=== PATIENT | male | born 1970 | race Caucasian/White ===

== ENCOUNTER 2023-02-19 14:36 | Outpatient (OUT) | payer OTHER, SELFPAY ==
--- NOTE | 2023-02-19 15:31 | CA_ITS ---
Patient: NAUN OJEDA Exam Date: 02/19/2023 : 1970 Gender:M Ordering : DR Frederick Ng . Admission #: [id number] Family : Order #: [id number] CLICK HERE TO VIEW EXAM ECHOCARDIOGRAM REPORT PROCEDURE: CA ECHO DOPPLER COMPLETE INDICATIONS: Atrial fibrillation; history of septal defect repair. COMPARISON: None. DESCRIPTION: COMPLETE ECHOCARDIOGRAM Real-time transthoracic echocardiography with 2D, M-mode, spectral and color flow Doppler performed. QUALITY: Technical quality was limited. LEFT VENTRICLE: Normal chamber size. Thickened posterior wall. Systolic function is at the lower limits of normal. LV EF: Lower limits of normal left ventricular ejection fraction, (50%). DIASTOLIC: Not adequately assessed due to heart rhythm. ATRIAL SEPTUM: Atrial and ventricular septum appear intact. LEFT ATRIUM: Mild dilatation. RIGHT ATRIUM: Moderate dilatation. RIGHT VENTRICLE: Mild dilatation. Moderately decreased right ventricular systolic function. TRICUSPID VALVE: Normal mobility and thickness. No stenosis with moderate regurgitation. Mild pulmonary hypertension. RVSP 38 mmHg. MITRAL VALVE: Normal mobility and thickness. No evidence of mitral valve stenosis. There is no mitral annular calcification. Mild mitral regurgitation. AORTIC VALVE: Bicuspid aortic valve, Terell type I with the right-left fusion. No visible sclerosis. No evidence of aortic valve stenosis. No aortic regurgitation. AORTIC ROOT: Mildly dilated. Measuring 4.0 cm. The ascending aorta is dilated measuring 4.0 cm. PULMONIC VALVE: Normal thickness and mobility. No stenosis. Mild regurgitation. PERICARDIUM: No evidence of pericardial effusion. IVC: Not well visualized. PLEURA: CONCLUSION: 1. Left ventricular systolic function is at the lower limits of normal. LVEF is 50%. 2. Mildly dilated right ventricle with moderately reduced systolic function. 3. Mild to moderate biatrial dilatation. 4. Interatrial and interventricular septum appear intact by color Doppler flow. 5. Moderate tricuspid regurgitation. 6. Mild mitral regurgitation. 7. Bicuspid aortic valve with no stenosis or regurgitation. 8. Mildly elevated right-sided pressures. 9. Mildly dilated aortic root [4.0 cm], and ascending aorta [4.0 cm]. Adult Echocardiography Procedure Report Left Ventricle LVEDD (3.7 - 5.6 cm): 5.07 cm LVESD (2.2 - 4.0 cm): 3.62 cm LVIVS thickness (0.6 - 1.2 cm): 1.04 cm LVPW thickness (0.5 - 1.0 cm): 1.27 cm e': 0.15 m/s E - e': 2.99 LVOT Max Gradient: 2.55 mm[Hg] LVOT Area (cm2): 0.80 m/s Peak Velocity (LVOT): 0.80 m/s Mean Velocity (LVOT): 0.52 m/s LVOT Diameter 2.27 cm Left Atrium Left Atrium Systolic Dimension: 3.57 cm Mitral Valve MV E to A Ratio: 0.00 Mitral Valve A-Wave Peak Velocity: 0.92 m/s Mitral Valve E-Wave Peak Velocity: 0.46 m/s Right Ventricle RV Internal Diastolic Dimension: 4.29 cm Aorta AO Root Diam: 4.00 cm Ascending Ao Diam: 4.02 cm Aortic Valve AoV Area (Peak Alberto): 2.17 cm2, 2.17 cm2 AoV Area (VTI): 2.40 cm2, 2.40 cm2 Peak Velocity(Antegrade Flow): 1.49 m/s Peak Gradient(Antegrade Flow): 8.91 mm[Hg] Mean Velocity(Antegrade Flow): 1.07 m/s Mean Gradient(Antegrade Flow): 5.32 mm[Hg] Velocity Time Integral: 30.44 cm Tricuspid Valve Peak Velocity (Regurgitant Flow): 2.49 m/s, 2.95 m/s, 2.95 m/s, 2.63 m/s Pulmonic Valve Mean Gradient: 3.93 mm[Hg] Mean Velocity: 0.92 m/s Peak Velocity: 1.41 m/s, 1.05 m/s Peak Gradient: 4.38 mm[Hg], 7.96 mm[Hg] Right Atrium Right Atrium Systolic Pressure: 128.34 ml, 128.34 ml Dictated by: Rosalino Chaudhry M.D. on 02/19/2023 at 20:12 Approved by: Rosalino Chaudhry M.D. on 02/19/2023 at 20:19
== END 2023-02-19 14:37 | disposition home or self-care (01) ==
LOC: CARD 14:39
PROVIDERS: PCP Family Medicine; Visit Provider Family Medicine
DX: I48.91 Unspecified atrial fibrillation (principal); I08.1 Rheumatic disorders of both mitral and tricuspid valves
CPT/HCPCS: 93306

== ENCOUNTER 2023-08-18 09:04 | Outpatient (OUT) | payer OTHER, SELFPAY ==
--- NOTE | 2023-08-18 09:00 | NM_ITS ---
Patient Name: NAUN OJEDA MR#: [id number] : 1970 Exam Date: 08/18/2023 Ordering Doctor: DR Frederick Ng . RADIOLOGY REPORT PROCEDURE: NM PRANAV PERF SPECT REST STR COMPARISON: None. INDICATIONS: ATRIAL FIBRILLATION, CHEST PAIN, HYPERTENSION TECHNIQUE: Exam Description: Stress/Rest two day protocol gated SPECT Rest Imagin.5 mCi Tc-99m Cardiolite IV on 08-21-2023 Stress Imaging 25.6 mCi Tc-99m Cardiolite IV on 08-18-2023 Exercise Protocol: 0.4 mg Lexiscan given IV Heart Rate (bpm): Rest: 97 Max: 115 PMHR: 67 Blood Pressure: Rest: 178/120 Max: 178/120 Symptoms: Rest and peak stress ECG findings were abnormal and the exercise portion of the study was abnormal per attending physician Dr. Ledesma due to EKG changes. ST-segment downsloping in V4-V6. For more details please see separate cardiac stress test report. FINDINGS: QUALITY OF STUDY: Good. PERFUSION DEFECT: LOCATION: Mid-anterior. Apical inferior. SIZE: Small (1-2 segments). SEVERITY: Mild. TYPE: Persistent. WALL MOTION: Severe hypokinesis: Apical inferior. LV SIZE: Enlarged; EDV 161 mL. TID / TCD: None; 1.1 LVEF: Abnormal. Calculated EF 34%. SUMMARY: Myocardial perfusion imaging study has ABNORMAL findings. CONCLUSION: 1. No acute or reversible ischemia. 2. Marked ventriculomegaly, 161 mL. 3. Markedly low ejection fraction, 34%. 4. Generalized hypokinesis, with marked hypokinesis involving the inferior apically segment. 5. Small fixed perfusion defect involving the apically inferior segment and mid anterior segment. Overall slightly poor perfusion throughout. Dictated by: Deep Mallory M.D. on 08/21/2023 at 11:56 Approved by: Deep Mallory M.D. on 08/21/2023 at 12:03
[2023-08-18] MEDS: REGADENOSON 0.4 MG/5 ML SYRINGE IV (10:10)
--- NOTE | 2023-08-18 12:51 | PM.STRESS ---
Stress Test Stress Test Requesting physician: Frederick Ng Procedure: Lexiscan Cardiolite stress test General Information: Reason for Stress Test: Chest pain Cardiac History and Risk Factors: HTN, afib, s/p septal defect closure & pericardial window Resting 12 - Lead Electrocardiogram: Rate & rhythm: Irregularly irregular corresponding to atrial fibrillation. Resting heart rate was averaging 98. Hundred: Normal T-waves/ST-segments: Non-specific T-wave and ST-segment changes in leads I & aVL, and II & III. Stress Test: Protocol: Duncan protocol was initiated, but due to inability to ambulate, the exercise component was therefore canceled.? Testing was changed to Lexiscan protocol, with injection of 0.4mg Lexiscan IV push followed by Cardiolite. Blood pressure: Initial & maximum 178/120 Rate & rhythm: Patient remained in atrial fibrillation during the exercise and recovery portions of the study.? The maximum heart rate was 115, which was 67% of the maximum predicted heart rate 170. ST-segments & T-waves: After injection of Lexiscan, there was downsloping of the ST-segments in leads V4-6, which resolved to baseline orientation at the end of the study. Patient response/symptoms: There were no symptoms similar to the chief complaint. Interpretation: This is an abnormal Lexiscan stress test with ST-segment downsloping in the lateral leads (V4-6). Asymptomatic. Cardiolite imaging interpretation will be reported separately. Clinical correlation required.?
== END 2023-08-18 09:05 | disposition home or self-care (01) ==
PROVIDERS: PCP Family Medicine; Visit Provider Family Medicine
DX: R07.9 Chest pain, unspecified (principal); I10 Essential (primary) hypertension
CPT/HCPCS: 78452; 93017; A9500; J2785

== ENCOUNTER 2023-09-23 15:14 | Outpatient (OUT) | payer OTHER, SELFPAY ==
[2023-09-23 16:20] LABS: Basophils Absolute Auto 0.1 10^3/uL (0.0-0.1); Basophils Percent Auto 0.6 % (0.2-2.0); Eosinophils Absolute Auto 0.2 10^3/uL (0.0-0.7); Eosinophils Percent Auto 1.6 % (0.9-7.0); Hematocrit 43.6 % (42.0-54.0); Hemoglobin 14.6 g/dL (14.0-18.0); Immature Granulocytes Abs Auto 0.04 10^3/uL (0.00-0.03); Immature Granulocytes Pct Auto 0.4 % (0.0-0.5); Lymphocytes Absolute Auto 2.8 10^3/uL (1.2-3.8); Lymphocytes Percent Auto 29.8 % (20.5-60.0); Mean Corpuscular HGB Conc 33.5 g/dL (29.9-35.2); Mean Corpuscular Hemoglobin 29.6 pg (25.9-34.0); Mean Corpuscular Volume 88.3 fL (80.0-94.0); Mean Platelet Volume 10.8 fL (9.5-13.5); Monocytes Absolute Auto 0.9 10^3/uL (0.3-0.8); Monocytes Percent Auto 9.1 % (1.7-12.0); Neutrophils Absolute Auto 5.5 10^3/uL (1.4-6.5); Neutrophils Percent Auto 58.5 % (43.0-75.0); Platelet Count 288 10^3/uL (150-450); Red Blood Count 4.94 10^6/uL (4.70-6.10); Red Cell Distribution Width 12.2 % (11.0-15.0); White Blood Count 9.4 10^3/uL (4.0-11.0)
[2023-09-23 16:22] LABS: BUN Creatinine Ratio 20.5; Calcium 8.8 mg/dL (8.5-10.1); Carbon Dioxide 28.7 mmol/L (21.0-32.0); Chloride 101 mmol/L (98-107); Estimated GFR (African America >60 (>=60); Estimated GFR (Non-African Ame >60 (>=60); Glucose 184 mg/dL (74-106); Potassium 3.7 mmol/L (3.5-5.1); Sodium 137 mmol/L (136-145)
== END 2023-09-23 15:15 | disposition home or self-care (01) ==
LOC: LAB 15:16
PROVIDERS: PCP Family Medicine; Visit Provider Internal Medicine Cardiovascular Disease
DX: I48.91 Unspecified atrial fibrillation (principal)
CPT/HCPCS: 36415; 80048; 85025

== ENCOUNTER 2023-10-05 15:24 | Outpatient (OUT) | payer OTHER, SELFPAY | END 2023-10-05 15:25 | disposition home or self-care (01) | LOC: SLEEP 15:24 | PROVIDERS: PCP Family Medicine; Visit Provider Family Medicine | DX: G47.33 Obstructive sleep apnea (adult) (pediatric) (principal) | CPT/HCPCS: 95806 ==

== ENCOUNTER 2023-12-03 15:26 | Outpatient (OUT) | payer OTHER, SELFPAY ==
[2023-12-03 15:56] LABS: Anion Gap 10.4; BUN Creatinine Ratio 19.1; Calcium 8.5 mg/dL (8.5-10.1); Carbon Dioxide 28.8 mmol/L (21.0-32.0); Chloride 100 mmol/L (98-107); Estimated GFR (African America >60 (>=60); Estimated GFR (Non-African Ame >60 (>=60); Glucose 248 mg/dL (74-106); Potassium 4.2 mmol/L (3.5-5.1); Sodium 135 mmol/L (136-145)
[2023-12-03 16:39] LABS: Basophils Absolute Auto 0.1 10^3/uL (0.0-0.1); Basophils Percent Auto 0.8 % (0.2-2.0); Eosinophils Absolute Auto 0.2 10^3/uL (0.0-0.7); Eosinophils Percent Auto 2.4 % (0.9-7.0); Hematocrit 42.9 % (42.0-54.0); Hemoglobin 14.4 g/dL (14.0-18.0); Immature Granulocytes Abs Auto 0.03 10^3/uL (0.00-0.03); Immature Granulocytes Pct Auto 0.4 % (0.0-0.5); Lymphocytes Absolute Auto 1.8 10^3/uL (1.2-3.8); Lymphocytes Percent Auto 23.2 % (20.5-60.0); Mean Corpuscular HGB Conc 33.6 g/dL (29.9-35.2); Mean Corpuscular Hemoglobin 29.8 pg (25.9-34.0); Mean Corpuscular Volume 88.8 fL (80.0-94.0); Mean Platelet Volume 11.3 fL (9.5-13.5); Monocytes Absolute Auto 0.8 10^3/uL (0.3-0.8); Monocytes Percent Auto 10.3 % (1.7-12.0); Neutrophils Percent Auto 62.9 % (43.0-75.0); Platelet Count 259 10^3/uL (150-450); Red Blood Count 4.83 10^6/uL (4.70-6.10); Red Cell Distribution Width 12.2 % (11.0-15.0); White Blood Count 7.9 10^3/uL (4.0-11.0)
== END 2023-12-03 15:27 | disposition home or self-care (01) ==
LOC: LAB 15:27
PROVIDERS: PCP Family Medicine; Visit Provider Internal Medicine Cardiovascular Disease
DX: I48.0 Paroxysmal atrial fibrillation (principal)
CPT/HCPCS: 36415; 80048; 85025

== ENCOUNTER 2024-03-30 06:26 | Outpatient (OUT) | payer OTHER, SELFPAY ==
--- OUTSIDE RECORDS SUMMARY | 2024-03-30 06:30 | XMS_ITS | CCD ---
Author Organization [facility] Care Team Providers Care Funeral Pre Arrangement Specialist Name Role Phone GUERRERO, DR JAMISON Admitting Unavailable GUERRERO, DR JAMISON Consulting Unavailable GUERRERO, DR JAMISON Attending Unavailable GUERRERO, DR JAMISON Admitting Unavailable GUERRERO, DR JAMISON Primary Care Unavailable GUERRERO, DR JAMISON Consulting Unavailable GUERRERO, DR JAMISON Attending Unavailable Beba Caballero Unavailable CORI, SAMER J Referring Unavailable CORI, SAMER J Admitting Unavailable CORI, SAMER J Attending Unavailable AUDREY, LOGAN Referring Unavailable DENA, CATRACHO Admitting Unavailable DENA, CATRACHO Attending Unavailable DENA, CATRACHO Referring Unavailable DENA, CATRACHO Referring Unavailable DENA, CATRACHO Referring Unavailable DENA, CATRACHO Attending Unavailable AUDREY, LOGAN Attending Unavailable AUDREY, LOGAN Referring Unavailable AUDREY, LOGAN Attending Unavailable Allergies Allergy Classification Reported Allergen(s) Allergy Type Date of Onset Reaction(s) Facility (3 sources) shrimp allergenic extract Drug Allergy anaphylaxis [facility] [employer] Other (1 source) Shrimp product; Translations: [SHRIMP] Propensity to adverse reactions to drug (disorder) 4 [facility] Repository Medications Current Medications Medication Drug Class(es) Dates Sig (Normalized) Sig (Original) citalopram 40 mg oral tablet (3 sources) Serotonin Reuptake Inhibitor take 1 tablet by mouth once daily Citalopram Hydrobromide 40 MG TAKE 1 TABLET BY MOUTH ONCE DAILY Oral for 30 Days Active metroNIDAZOLE 500 mg oral tablet (3 sources) Nitroimidazole Antimicrobial Start: 12-03-2021 take 4 tablets by mouth once metroNIDAZOLE 500 MG 4 tablets Orally once for 1 days November, Active Problems Active Problems Problem Classification Problem Date Documented Date Episodic/Chronic Cardiac dysrhythmias (4 sources) Paroxysmal atrial fibrillation; Translations: [Unspecified atrial fibrillation] Onset: 09-30-2023 Chronic Essential hypertension (2 sources) Essential (primary) hypertension; Translations: [Essential (primary) hypertension] Onset: 09-07-2023 Chronic Heart valve disorders (2 sources) Nonrheumatic aortic (valve) stenosis; Translations: [Nonrheumatic aortic (valve) stenosis] Onset: 09-04-2023 Chronic Other aftercare (2 sources) Other technician terminal and repeater (current) drug therapy; Translations: [Other technician terminal and repeater (current) drug therapy] Onset: 01-06-2024 Episodic Other circulatory disease (2 sources) Personal history of other diseases of the circulatory system; Translations: [Personal history of other diseases of the circulatory system] Onset: 01-06-2024 Episodic Other upper respiratory infections (1 source) Acute sinusitis, unspecified; Translations: [ACUTE SINUSITIS UNSPECIFIED] Onset: 06-21-2021 Episodic Residual codes; unclassified (2 sources) Other specified postprocedural states; Translations: [Other specified postprocedural states] Onset: 01-06-2024 Episodic Unclassified (3 sources) CONTACT W/AND (SUSP) EXPOS COVID-19; Translations: [CONTACT W/AND (SUSP) EXPOS COVID-19] Onset: 06-21-2021 Unclassified (2 sources) Other persistent atrial fibrillation; Translations: [Other persistent atrial fibrillation] Onset: 11-17-2023 Past or Other Problems Problem Classification Problem Date Documented Da te Episodic/Chronic Other circulatory disease (2 sources) Elevated blood-pressure reading, without diagnosis of hypertension Onset: 12-03-2021 Resolved: 12-03-2021 Episodic Other screening for suspected conditions (not mental disorders or infectious disease) (1 source) Encounter for screening for malignant neoplasm of prostate; Translations: [ENC SCREEN MALIG NEOPLASM PROSTATE] Onset: 10-15-2020 Episodic Residual codes; unclassified (2 sources) High risk heterosexual behavior Onset: 12-03-2021 Resolved: 12-03-2021 Episodic Unclassified (1 source) CONTACT W/AND (SUSP) EXPOS COVID-19; Translations: [CONTACT W/AND (SUSP) EXPOS COVID-19] Onset: 06-17-2021 Results Test Name Value Interpretation Reference Range Facility 37on 01-06-2024 37 Start Hydrochlorothiazide for blood pressure and may help reduce leg swelling Goal blood pressure is less than 130/80 Have blood drawn in 1-2 weeks to check kidney function, electrolytes, liver function and thyroid function Chest x ray to be completed and you need a annual eye exam every year with taking amiodarone. Normal [facility] Follow-Upon 01-06-2024 Follow-Up [id number] Ha Tinoco 1970 M Date Provider Department Center 01/06/2024 LOGAN TORO GINO [facility] Family History Problem Relation Age of Onset Other Mother Family Status - Relation Status Age at Mother Level of Service:55786 [place] OFFICE/OUTPATIENT ESTABLISHED MOD MDM 30 MIN Normal [facility] Telephoneon 12-17-2023 Telephone [id number] Ha Tinoco 1970 M Date Provider Department Center 12/17/2023 CATRACHO MATHIAS [facility] [place] [facility] Family History Problem Relation Age of Onset Other Mother Family Status - Relation Status Age at Mother Reason for Visit and Comments: week f/u post ablation [Other] Normal [facility] HEMOGLOBIN A1Con 12-10-2023 Glucose [Mass/Vol] 237 mg/dL Normal [facility] Comment on above: Order Comment: NO VA RIANT Performed By: #### L [id number] #### [facility] ([facility]) [address] [place] [address] HbA1c (Bld) [Mass fraction] 9.9 % High 4.0-6.0 [facility] Comment on above: Order Comment: NO VA RIANT Performed By: #### L [id number] #### [facility] ([facility] [address] [place] [address] HPon 12-10-2023 [facility] Electrophysiology Consult Note Reason for visit: Afib 12/10/23 Pt here for Afib ablation. Pt in Afib HPI: Ha Tinoco is a 53 y.o. year old with past medical history of A-fib hypertension morbid obesity diabetes mellitus type 2 history of atrial septal defect repair was recently seen by Logan Ventura after he was referred for atrial fibrillation by Dr. Ng. Patient was diagnosed with atrial fibrillation in December 2022 and had been placed on Eliquis and metoprolol. He had a stress test which was negative for ischemia and had an echocardiogram in February 2023. Previously had not been tested for sleep apnea and recently underwent cardioversion on 09/30/2023 when he converted to sinus rhythm. Subsequently he was noted to be in atrial fibrillation and today's EKG shows that he is in A-fib with rapid ventricular rate. He has not been trialed on any antiarrhythmic drugs. Palpitations are much less frequent. SOB is improving. Denies chest pain and bleeding on Eliquis. Feels a lot better now but says his BP has been elevated. EKG 11/17/23 Afib PMH: Past Medical History: Diagnosis Date Abnormal ECG Anxiety Arrhythmia Atrial fibrillation ([facility]/HCC) 12/2022 Depression Diabetes mellitus ([facility]) Heart valve disease bicuspid aortic valve History of cardioversion 12/2022 Hypertension Obesity BMI 44.75 Sleep apnea PSH: Past Surgical History: Procedure Laterality Date ASD REPAIR CARPAL TUNNEL RELEASE SH: Social Determinants of Health Tobacco Use: High Risk (12/10/2023) Patient History Smoking Tobacco Use: Former Smokeless Tobacco Use: Current Passive Exposure: Not on file Alcohol Use: Not on file Financial Resource Strain: Not on file Food Insecurity: Not on file Transportation Needs: Not on file Physical Activity: Not on file Stress: Not on file Social Connections: Not on file Intimate Partner Violence: Unknown (08/27/2023) [place] Safety & Environment Fear of Current or Ex-Partner: Not on file Emotionally Abused: Not on file Physically Abused: Not on file Sexually Abused: Not on file Physically or Sexually Abused: Not on file Depression: Not on file Housing Stability: Not on file Utilities: Not on file Allergies: Allergies Allergen Reactions Shrimp Anaphylaxis Throat swelling, itchy face Weight: 162kg Visit Vitals BP 140/79 Pulse 74 Temp 36 ???C (96.8 ???F) (Temporal) Resp 13 Ht 1.905 m (6' 3 ) Wt (!) 162 kg (356 lb 7.7 oz) SpO2 96% BMI 44.56 kg/m??? Smoking Status Former BSA 2.93 m??? Meds: No current facility-administered medications on file prior to encounter. Current Outpatient Medications on File Prior to Encounter Medication Sig Dispense Refill citalopram (CeleXA) 40 mg tablet Take 40 mg by mouth in the morning. Eliquis 5 mg tablet Take 5 mg by mouth in the morning and at bedtime. metoprolol tartrate (Lopressor) 50 mg tablet Take 50 mg by mouth with breakfast and with evening meal. ROS: Review of Systems Cardiovascular: Positive for dyspnea on exertion (improving) and palpitations (much less frequent). Respiratory: Positive for wheezing. Musculoskeletal: Positive for back pain and myalgias. Neurological: Positive for headaches. All other systems reviewed and are negative. Physical Exam: Constitutional General Appearance: well-nourished, well-developed, appears stated age Level of Distress: comfortable Psychiatric Mental Status: alert, normal affect Orientation: oriented to time, place, and person Insight: good judgement Eyes Lids and Conjunctivae: non-injected, no xanthelasma ENMT Ears: no lesions on external ear Nose: no lesions on external nose Oropharynx: no cyanosis, no pallor Neck Neck: supple, trachea midline Carotid Arteries: bilateral normal upstroke, no bruits Jugular Veins: normal jugular venous pressure Thyroid: not enlarged Lungs Respiratory Effort: unlabored Chest Exam: normal curvature, no thoracic deformity Auscultation: clear, no wheezing, no rales, no rhonchi Cardiovascular Rate And Rhythm: regular Heart Sounds: normal S1, normal s2, no gallop Systolic Murmur: not heard Diastolic Murmur: not heard Extremities: no cyanosis, no edema, no peripheral signs of emboli Peripheral Pulses Radial Pulse: normal Abdomen Inspection and Palpation: soft, non distended, no bruit, non tender Musculoskeletal Inspection: no joint swelling Neurologic Gait: normal gait Skin Inspection and Palpation: warm and dry Nails: no clubbing Labs: @LABRESULTS@ No results found for: CHOLESTEROL TOTAL , HDL , LDL CALC , LDL DIRECT , TRIGLYCERIDES , TSH , T3 TOTAL , T4 TOTAL , THYROID PEROXIDASE AB , BNP EKG: Encounter Date: 12/10/23 ECG 12 lead Result Value Ventricular Rate 74 Atrial Rate 74 NV Interval 192 QRS DURATION 104 QT Interval 436 QTC CALCULATION(BAZETT) 483 P Gowrie 56 R-Gowrie 43 T Wave Gowrie 87 Impression Normal sinus rhythm (more content not included)... Normal [facility] HP This report has been cancelled. Normal [facility] POCT GLUCOSE METER UNSOLICIT ED RESULTSon 12-10-2023 Glucose [Mass/Vol] 299 mg/dL High 70-105 [facility] Comment on above: Order Comment: Waive d Testing in the ED is performed under the ED CLIA certificate #[id number]. Result Comment: [email or web address] Performed By: #### L [id number] ####[facility] ([facility])[address] [place] [address] Glucose [Mass/Vol] 292 mg/dL High 70-105 [facility] Comment on above: Order Comment: Waive d Testing in the ED is performed under the ED CLIA certificate #[id number]. Result Comment: [email or web address] Performed By: #### L [id number] #### [facility] ([facility] [address] [place] [address] Glucose [Mass/Vol] 312 mg/dL High 70-105 [facility] Comment on above: Order Comment: Waive d Testing in the ED is performed under the ED CLIA certificate #[id number]. Result Comment: [email or web address] Performed By: #### L [id number] ####[facility] ([facility])[address] [place] [address] PROTIME-INRon 12-10-2023 INR IN PPP BY COAGULATION ASSAY 1.06 Normal 0.90-1.10 [facility] Comment on above: Result Comment: ACCC P RECOMMENDED INR FOR WARFARIN THERAPY CONDITION INR PROPHYLAXIS OF VENOUS THROMBOSIS 2-3 (HIGH-RISK SURGERY) TREATMENT OF VENOUS THROMBOSIS 2-3 TREATMENT OF PULMONARY EMBOLISM 2-3 PREVENTION OF SYSTEMIC EMBOLISM: 2-3 ACUTE MYOCARDIAL INFARCTION TISSUE HEART VALVES VALVULAR HEART DISEASE ATRIAL FIBRILLATION RECURRENT SYSTEMIC EMBOLISM MECHANICAL HEART VALVE 2.5-3.5 FROM: ORAL ANTICOAGULANTS. MECHANISM OF ACTION, CLINICAL EFFECTIVENESS, AND OPTIMAL THERAPEUTIC RANGE. CHEST 1995;108:231S-246S. Performed By: #### L [id number] ####[facility] ([facility])[address] [place] [address] PROTHROMBIN TIME (PT) IN PPP BY COAGULATION ASSAY 13.8 Seconds Normal 12.3-14.8 [facility] Comment on above: Performed By: #### L [id number] ####[facility] ([facility])[address] [place] [address] Prep for Procedureon 024 Prep for Procedure [id number] Ha Tinoco 1970 M Date Provider Department Center 12/10/2023 CATRACHO MATHIAS [facility] [place] [facility] Family History Problem Relation Age of Onset Other Mother Family Status - Relation Status Age at Mother Normal [facility] [id number] 12-02-2023 [id number] ARRIVAL TIME GIVEN 0 600 HOLD ELIQUIS 12/07 MEDICATIONS TO TAKE DAY OF SURGERY WITH SIP OF WATER AMIODARONE AMLODIPINE CELEXA METOPROLOL ORDERS FOR LABS FAXED TO [facility] PT AGREES TO HAVE LABS DRAWN ON 12/02 NSAIDs (Motrin,Aleve): 5 days prior to procedure Vitamins/Supplements: 5 days prior to procedure IF YOU ARE GOING HOME AFTER YOUR SURGERY OR PROCEDURE, FOR YOUR SAFETY, YOUR SURGERY WILL BE CANCELLED IF BOTH OF THE FOLLOWING ARE NOT AVAILABLE: An adult chain saw driver over the age of 18, that can receive information about your care after surgery, and drive you home. A responsible adult to stay with you for 24 hours in case of an emergency. Can be same as above. The highest risk of complications is within the first 24 hours after sedation/anesthesia. Nothing to eat or drink after midnight the night before surgery. This includes gum, candy, mints, and lozenges. No alcohol, marijuana, or tobacco products including vaping for 24 hours. Please brush your teeth; don't swallow the toothpaste or water. If you use dentures, wear them but do not use paste. Please leave any other removable dental hardware at home. Do not put in contact lenses. Do not wear perfume, make-up, nail north korean, or lotions on the day of your surgery or procedure. Follow skin-prep/wipe instructions as below if required. Bring with you: *Insurance card *Photo ID *Medication list *Co-pay for visit/prescriptions If applicable: *Rescue inhalers *Green bracelet from lab *CPAP or BiPAP machine, if staying overnight *Any braces, splints, or equipment ordered preoperatively *Remote controls for implanted devices Leave at home: *Purse/Wallet/Rogel- unless needed for co-pay *Cell phone (can leave with family/friend or place in locker if needed) *Jewelry (including piercings and wedding bands) *If not possible, ask the person who is waiting with you to keep them Children under the age of 12 will not be allowed into patient care areas. We will call you between 3pm and 4pm the day before your surgery to give you an arrival time. If you do not receive this call, have any questions, or need to make any changes, please call [phone]. Notify your surgeon if you develop any illness such as a cold, cough, fever, sore throat or vomiting between now and your surgery. Thank you for entrusting us with your care. [facility] Surgical Services Team Normal [facility] Prep for Procedureon 024 Prep for Procedure [id number] BristolHa Erich 1970 M Date Provider Department Center 11/18/2023 Missael-MARIA DEL ROSARIO KELLEY [facility] [place] [facility] Family History Problem Relation Age of Onset Other Mother Family Status - Relation Status Age at Mother Normal [facility] Office Visiton 11-17-2023 Follow-up visit [id number] [place],Ha Erich 1970 M Date Provider Department Center 11/17/2023 241-CATRACHO CORRIGAN GINO Gibson Family History Problem Relation Age of Onset Other Mother Family Status - Relation Status Age at Mother Level of Service:79741 [place] OFFICE/OUTPATIENT NEW MODERATE MDM 45 MINUTES Normal [facility] ANEThomas 09-30-2023 ANES --- Attestation signed by Teresa Persaud MD at 10/01/2023 2:28 PM By using the attestations below, the signing clinician agrees that I have read and verify that the documentation has been personally reviewed by me and ensure that the documentation accurately reflects the encounter. GC: I personally saw this patient on the day of the encounter, performed the knox portion(s) of the service and participated in the management and confirm the resident's documentation. Please note there may be an additional personal documentation from me. Patient: Ha Tinoco Procedure Information Date/Time: 09/30/23 1030 Procedure: TRANSESOPHAGEAL ECHO (RAFAL) W/ POSSIBLE CARDIOVERSION Location: [facility] Vascular Lab Clinical information reviewed: Allergies Physical Exam Airway Mallampati: IV TM distance: >3 FB Neck ROM: full Cardiovascular Rhythm: irregular Rate: normal Dental Pulmonary - normal exam Breath sounds clear to auscultation Abdominal (+) obese Abdomen: soft Anesthesia Plan ASA 4 (Moderate sedationd) Anesthetic plan and risks discussed with patient. Use of blood products discussed with patient who consented to blood products. Plan discussed with attending and fellow. Additional Equipment Requests Normal [facility] HPon 09-30-2023 --- Attestation signed by Teresa Persaud MD at 10/01/2023 2:28 PM By using the attestations below, the signing clinician agrees that I have read and verify that the documentation has been personally reviewed by me and ensure that the documentation accurately reflects the encounter. GC: I personally saw this patient on the day of the encounter, performed the knox portion(s) of the service and participated in the management and confirm the resident's documentation. Please note there may be an additional personal documentation from me. H&P reviewed. The patient was examined and there are no changes to the H&P. Will proceed with RAFAL guided DCCV for afib rhythm control. Procedure's details, risks and benefits discussed with the patient and he's agreeable. [facility] HP H&P reviewed. The patient was examined and there are no changes to the H&P. [facility] NURSNOTEon 09-30-2023 NURSNOTE RN educated pt on discharge instructions. RN encouraged pt to voice any questions or concerns. Pt verbalizes no questions or concerns at this time. Pt was wheeled off unit with all belongings. Pt awake alert oriented, tolerating sips of water w/o difficulty. [facility] Orders Onlyon 09-22-2023 Orders Only [id number] Ha Tinoco 1970 M Date Provider Department Center 09/22/2023 ELMIRA BOJORQUEZ [facility] [place] [facility] Family History Problem Relation Age of Onset Other Mother Family Status - Relation Status Age at Mother [facility] Office Visiton 09-04-2023 Follow-up visit [id number] Ha Tinoco 1970 M Date Provider Department Center 09/04/2023 120-LOGAN VENTURA CARD [facility] Family History Problem Relation Age of Onset Other Mother Family Status - Relation Status Age at Mother Level of Service:46217 [place] OFFICE/OUTPATIENT NEW MODERATE MDM 45 MINUTES Normal [facility] Chlamydia/GC/Trich NAAon Chlamydia Trachomotis, ERNST Negative Normal Negative [facility] Comment on above: Order Comment: Reaso n for Exam High risk heterosexual behavior SOURCE OF SPECIMEN: URINE APTIMA Performed By: #### G CCHLAMTRI #### [facility] , Neisseria Gonorrhoeae, ERNST Negative Normal Negative [facility] Comment on above: Order Comment: Reaso n for Exam High risk heterosexual behavior SOURCE OF SPECIMEN: URINE APTIMA Performed By: #### G CCHLAMTRI #### [facility] , Trichomonas ERNST Negative Normal Negative [facility] Comment on above: Order Comment: Reaso n for Exam High risk heterosexual behavior SOURCE OF SPECIMEN: URINE APTIMA Result Comment: Perf ormed at: =G - [facility] [address] [id number] Fitness Trainer: Lizzie Butterfield MD, Phone: [phone] PERFORMED BY: [facility] [address] [place] [address] PATHOLOGIST FOREST MANAGER ARTIE IYER M.D. Performed By: #### G CCHLAMTRI #### [facility] , Chlamydia/GC/Trich ERNST Negative Negative [facility] Other [facility]19 [facility]on 06-05 SARS-CoV-2 (COVID-19) RNA ERNST+probe Ql (Unsp spec) Not detected Normal NOT DETECTED [facility] Comment on above: Result Comment: This test is not yet approved or cleared by the [place] FDA. When there are no FDA-approved or cleared tests available, and other criteria are met, FDA can make tests available under an emergency access mechanism called an Emergency Use Authorization (EUA). The EUA for this test is supported by the Manager Compliance of Health and Human Service's (HHS's) declaration that circumstances exist to justify the emergency use of in vitro diagnostics for the detection and/or diagnosis of the virus that causes COVID-19. This EUA will remain in effect (meaning this test can be used) for the duration of the COVID-19 declaration justifying emergency of IVDs, unless it is terminated or revoked by FDA (after which the test may no longer be used). When diagnostic testing is negative, the possibility of a false negative should be considered in the context of a patient's recent exposures and the presence of clinical signs and symptoms consistent with SARS-CoV-2. Performed By: #### [facility] #### [facility] [address] [place] [address] Dr. Darci Ramirez CBC AUTO DIFFon 10-09-2020 BASO # 0.1 103/ul Normal 0.0-0.1 [facility] Comment on above: Performed By: #### C BC #### [facility] [address] [place] [address] Andrae Cady Basophils/100 WBC (Bld) 0.5 % Normal 0.2-2.0 [facility] Comment on above: Performed By: #### C BC #### [facility] [address] [place] [address] Andrae Cady EO # 0.2 103/ul Normal 0.0-0.7 [facility] Comment on above: Performed By: #### C BC #### [facility] [address] [place] [address] Andrae Cady Eosinophils/100 WBC (Bld) 2.3 % Normal 0.9-7.0 [facility] Comment on above: Performed By: #### C BC #### [facility] [address] [place] [address] Andrae Cady Erythrocyte distribution width (RBC) [Ratio] 12.3 % Normal 11.0-15.0 [facility] Comment on above: Performed By: #### C BC #### [facility] [address] [place] [address] Andrae Cady Hematocrit (Bld) [Volume fraction] 47.0 % Normal 42.0-54.0 [facility] Comment on above: Performed By: #### C BC #### [facility] [address] [place], [place] [id number] Andrae Cady Hemoglobin (Bld) [Mass/Vol] 15.9 g/dL Normal 14.0-18.0 [facility] Comment on above: Result Comment: Prev iously reported as: 15.9 On 10/09/2020 07:18 By CV2 Performed By: #### C BC #### [facility] [address] [place] [address] Andrae Cady IG # 0.03 10e3/ul Normal 0.00-0.03 [facility] Comment on above: Performed By: #### C BC #### [facility] [address] [place] [address] Andrae Cady IG % 0.3 % Normal 0.0-0.5 [facility] Comment on above: Performed By: #### C BC #### [facility] [address] [place] [address] Andrae Cady LYMPH # 2.3 103/ul Normal 1.2-3.8 [facility] Comment on above: Performed By: #### C BC #### [facility] [facility] [address] [place] [address] Andrae Cady Lymphocytes/100 WBC (Bld) 23.6 % Normal 20.5-60.0 [facility] Comment on above: Performed By: #### C BC #### [facility] [address] [place] [address] Andrae Cady MANUAL DIFF REQ NO Normal [facility] Comment on above: Performed By: #### C BC #### [facility] [address] [place] [address] Andrae Cady MCH (RBC) [Entitic mass] 29.6 pg Normal 25.9-34.0 [facility] Comment on above: Performed By: #### C BC #### [facility] [address] [place] [address] Andrae Cady MCHC (RBC) [Mass/Vol] 33.8 g/dL Normal 29.9-35.2 [facility] Comment on above: Performed By: #### C BC #### [facility] [address] [place] [address] Andrae Cady MCV (RBC) [Entitic vol] 87.5 fL Normal 80.0-94.0 [facility] Comment on above: Performed By: #### C BC #### [facility] [address] [place], [place] [id number] Andrae Lazar MONO # 0.8 103/ul Normal 0.3-0.8 [facility] Comment on above: Performed By: #### C BC #### [facility] [address] [place] [address] Andrae Lazar Monocytes/100 WBC (Bld) 8.4 % Normal 1.7-12.0 [facility] Comment on above: Performed By: #### C BC #### [facility] [address] [place] [address] Andrae Lazar NEUT # 6.4 103/ul Normal 1.4-6.5 [facility] Comment on above: Performed By: #### C BC #### [facility] [address] [place] [address] Andrae Lazar Neutrophils/100 WBC (Bld) 64.9 % Normal 43.0-75.0 [facility] Comment on above: Performed By: #### C BC #### [facility] [address] [place], [place] [id number] Andrae Lazar Platelet mean volume (Bld) [Entitic vol] 10.1 fL Normal 9.5-13.5 [facility] Comment on above: Performed By: #### C BC #### [facility] [address] [place] [address] Andraedavid Tayloren PLT 326 103/ul Normal 150-450 [facility] Comment on above: Performed By: #### C BC #### [facility] [address] [place], [place] [id number] Andrae Cady RBC 5.37 106/ul Normal 4.70-6.10 [facility] Comment on above: Performed By: #### C BC #### [facility] [address] [place], [place] [id number] Andrae Cady WBC 9.9 103/ul Normal 4.0-11.0 [facility] Comment on above: Performed By: #### C BC #### [facility] [address], [place] [address] Andrae Lazar GLYCOHEMOGLOBIN A1Con 2020 ADA RECOMMENDATION ADA THERAPEUTIC TARG ET 6.0 - 7.0 ACTION SUGGESTED > 7.0 Normal [facility] Comment on above: Performed By: #### A 1C #### [facility] [address] [id number] Andrae Cady Glucose [Mass/Vol] 148 mg/dL Normal [facility] Comment on above: Performed By: #### A 1C #### [facility] [address] [id number] Andrae Cady HbA1c (Bld) [Mass fraction] 6.8 % Critically high <=6.0 [facility] Comment on above: Performed By: #### A 1C #### [facility] [address] [place] [address] Andrae Lazar LIPID PROFILEon 10-09-2020 CHOL-HDL RATIO NORM SEE BELOW Normal [facility] Comment on above: Result Comment: 3.3 - 4.4 LOW RISK 4.4 - 7.1 AVERAGE RISK 7.1 - 11.0 MODERATE RISK >11.0 HIGH RISK Performed By: #### L IPID, CMP, PSASC #### [facility] [address] [place] [address] Andrae Cady Cholesterol [Mass/Vol] 183 mg/dL Normal <=200 [facility] Comment on above: Performed By: #### L IPID, CMP, PSASC #### [facility] [address] [address] Andrae Cady Cholesterol in HDL [Mass/Vol] 29 mg/dL Normal [facility] Comment on above: Performed By: #### L IPID, CMP, PSASC #### [facility] [address] [id number] Andrae Cady Cholesterol in LDL [Mass/Vol] 125.0 mg/dL Normal [facility] Comment on above: Performed By: #### L IPID, CMP, PSASC #### [facility] [address] [id number] Andrae Cady Cholesterol.total/C holesterol in HDL [Mass ratio] 6.3 {ratio} Normal [facility] Comment on above: Performed By: #### L IPID, CMP, PSASC #### [facility] [address] [id number] Andrae Cady HDL NORMAL > or = 60 mg/dl - LO W CARDIOVASCULAR RISK <40 mg/dl - HIGH CARDIOVASCULAR RISK Normal [facility] Comment on above: Performed By: #### L IPID, CMP, PSASC #### [facility] [address] [address] Andrae Cady LDL CALC NORMAL SEE BELOW Normal [facility] Comment on above: Result Comment: <100 mg/dl OPTIMAL 100 - 129 mg/dl NEAR OR ABOVE OPTIMAL 130 - 159 mg/dl BORDERLINE HIGH 160 - 189 mg/dl HIGH >190 mg/dl VERY HIGH Performed By: #### L IPID, CMP, PSASC #### [facility] [address] [address] Andrae Cady Triglyceride [Mass/Vol] 145 mg/dL Normal <=150 [facility] Comment on above: Performed By: #### L IPID, CMP, PSASC #### [facility] [address] [address] Andrae Cady VLDL CALC 29.0 mg/dL Normal [facility] Comment on above: Performed By: #### L IPID, CMP, PSASC #### [facility] [address] [id number] Andraedavid Tayloren PROF 14(COMP METB)on 021 Albumin [Mass/Vol] 4.0 g/dL Normal 3.5-5.0 [facility] Comment on above: Performed By: #### L IPID, CMP, PSASC #### [facility] [address] [address] Andrae Cady Albumin/Globulin [Mass ratio] 1.1 {ratio} Normal [facility] Comment on above: Performed By: #### L IPID, CMP, PSASC #### [facility] [address] [id number] Andrae Cady ALP [Catalytic activity/Vol] 86 U/L Normal 38-126 [facility] Comment on above: Performed By: #### L IPID, CMP, PSASC #### [facility] [address] [id number] Andrae Cady ALT [Catalytic activity/Vol] 61 U/L Normal 21-72 [facility] Comment on above: Performed By: #### L IPID, CMP, PSASC #### [facility] [address] [id number] Andrae Cady Anion gap [Moles/Vol] 14.8 mmol/L Normal [facility] Comment on above: Performed By: #### L IPID, CMP, PSASC #### [facility] [address] [address] Andrae Cady AST [Catalytic activity/Vol] 29 U/L Normal 17-59 [facility] Comment on above: Performed By: #### L IPID, CMP, PSASC #### [facility] [address] [address] Andrae Cady Bilirubin [Mass/Vol] 0.6 mg/dL Normal 0.2-1.3 [facility] Comment on above: Performed By: #### L IPID, CMP, PSASC #### [facility] [address] [id number] Andrae Cady Calcium [Mass/Vol] 9.0 mg/dL Normal 8.4-10.2 [facility] Comment on above: Performed By: #### L IPID, CMP, PSASC #### [facility] [address] [id number] Andrae Cady Chloride [Moles/Vol] 101 mmol/L Normal 98-107 [facility] Comment on above: Performed By: #### L IPID, CMP, PSASC #### [facility] [address] [id number] Andrae Cady CO2 [Moles/Vol] 28.2 mmol/L Normal 22.0-30.0 [facility] Comment on above: Performed By: #### L IPID, CMP, PSASC #### [facility] [address], [place] [address] Andrae Cady Creatinine [Mass/Vol] 0.92 mg/dL Normal 0.66-1.25 [facility] Comment on above: Performed By: #### L IPID, CMP, PSASC #### [facility] [address], [place] [address] Andrae Cady EGFR-AF GUATEMALAN >60 Normal >=60 [facility] Comment on above: Performed By: #### L IPID, CMP, PSASC #### [facility] [address], [place] [address] Andrae Cady EGFR-NON AF GUATEMALAN >60 Normal >=60 [facility] Comment on above: Performed By: #### L IPID, CMP, PSASC #### [facility] [address] [id number] Andrae Cady Globulin (S) [Mass/Vol] 3.6 g/dL Normal [facility] Comment on above: Performed By: #### L IPID, CMP, PSASC #### [facility] [address], [place] [address] Andrae Cady Glucose [Mass/Vol] 164 mg/dL Critically high 74-106 [facility] Comment on above: Performed By: #### L IPID, CMP, PSASC #### [facility] [address], [place] [address] Andrae Cady Potassium [Moles/Vol] 4.0 mmol/L Normal 3.4-5.0 [facility] Comment on above: Performed By: #### L IPID, CMP, PSASC #### [facility] [address], [place] [address] Andrae Cady Protein [Mass/Vol] 7.6 g/dL Normal 6.1-8.2 [facility] Comment on above: Performed By: #### L IPID, CMP, PSASC #### [facility] [address], [place] [address] Andrae Cady Sodium [Moles/Vol] 140 mmol/L Normal 137-145 [facility] Comment on above: Performed By: #### L IPID, CMP, PSASC #### [facility] [address], [place] [address] Andrae Tayloren Urea nitrogen [Mass/Vol] 15.0 mg/dL Normal 9.0-20.0 [facility] Comment on above: Performed By: #### L IPID, CMP, PSASC #### [facility] [address], [place] [address] Andrae Tayloren Urea nitrogen/Creatinine [Mass ratio] 16.3 mg/mg Normal [facility] Comment on above: Performed By: #### L IPID, CMP, PSASC #### [facility] [address], [place] [address] Andrae Lazar Vital Signs Date Time Vital Sign Value Performing Clinician Facility 12-03-2021 15:35-0400 Body height 190.5 cm [facility] 12-03-2021 15:35-0400 Body mass index (BMI) [Ratio] 39.74 kg/m2 [facility] 12-03-2021 15:35-0400 Body temperature 98 [degF] [facility] 12-03-2021 15:35-0400 Body weight 144.24 kg [facility] 12-03-2021 15:35-0400 Diastolic blood pressure 99 mm[Hg] [facility] 12-03-2021 15:35-0400 Respiratory rate 18 /min [facility] Caballero [facility] 12-03-2021 15:35-0400 SaO2% (BldA) [Mass fraction] 98 % [facility] Caballero [facility] 12-03-2021 15:35-0400 Systolic blood pressure 157 mm[Hg] [facility] Other Encounters Encounter Date Encounter Type Care Provider Facility Start: 01-06-2024 End: 01-06-2024 ambulatory [facility] Start: 12-10-2023 ambulatory [facility] Start: 12-10-2023 ambulatory [facility] Start: 12-10-2023 End: 12-10-2023 ambulatory [facility] Start: 11-17-2023 End: 11-17-2023 ambulatory [facility] Start: 09-30-2023 End: 09-30-2023 ambulatory TERESA [facility] Start: 09-04-2023 End: 09-04-2023 ambulatory [facility] Start: 12-09-2021 End: 12-09-2021 ambulatory [facility] Caballero [facility] Start: 12-09-2021 Telephone encounter [facility] Start: 12-03-2021 End: 12-03-2021 ambulatory [facility] Caballero [facility] Start: 12-03-2021 Office outpatient ne w 20 minutes Beba Caballero [facility] Start: 06-17-2021 End: 06-17-[address] YAQUELIN NG Facility:[facility] Start: 10-15-2020 Encounter for genera l adult medical examination without abnormal findings DR YAQUELIN NG [facility] Start: 10-09-2020 End: 10-10-[address] YAQUELIN NG Facility:[facility] Start: 10-09-2020 End: 10-10-2020 Encounter for general adult medical examination without abnormal findings DR YAQUELIN NG Facility:[facility] Procedures Date Procedure Procedure Detail Performing Clinician Start: 10-09-[address] CORNEL NG Comment on above: Performed By: #### L IPID, CMP, PSASC #### [facility] [address], [place] [address] Andrae Lazar Payers Date Payer Category Payer Private Health Insurance [id number] 1970 Unknown [id number] 1970 Unknown [id number] 1957 Private Health Insurance [id number] 1957 Private Health Insurance [id number] Social History Date Type Detail Facility Sex Assigned At [facility] Clinical Notes 12-03-2021 to 01-06-2024 Note Date & Type Note Facility 01-06-2024 Note A1C 9.9- f/U with PC P for tighter glycemic management and evaluation [facility] 01-06-2024 Note Overall pt is doing well post ablation, remains in SR and no acute symptoms or concerns today [facility] 01-06-2024 Note [id number]= 2- HTN and DM Continue eliquis anticoagulation- denied any bleeding tendencies, and continue metoprolol EKG today Sinus rhythm [facility] 01-06-2024 Note Hypertension is unco ntrolled . Dietary sodium restriction. Weight loss. Regular aerobic exercise. Medication changes per orders.- Add hydrochlorothiazide to regime and repeat BMP in 1-2 weeks to check renal function and electrolytes Blood pressure will be reassessed in 3 months. [facility] 01-06-2024 Note Patient here for fol low up afib ablation and RAFAL performed on 12/10/[address] Corrigan. Denies chest pain, lightheadedness/syncope, and bleeding on Eliquis. Has had some LE edema s/p ablation. FIGUEREDO is improving. Review of Systems Cardiovascular: Positive for dyspnea on exertion (improving) and palpitations. Respiratory: Positive for wheezing. Musculoskeletal: Positive for back pain and myalgias. Neurological: Positive for headaches. All other systems reviewed and are negative. [facility] 01-06-2024 Note [facility] CARDIOLOGY PROGR ESS NOTE HPI: Ha Tinoco is a 53 y.o. male here for F/U post afib ablation HPI 53 yo male with PMH: A fib, HTN, Morbid obesity, DM type 2, H/O Atrial septal defent repair, Eczema Presents today s/p recent a fib ablation. Denied chest pain, fever, difficulty swallowing, palpitations. States b/p at home typically is 140-170/80-96 Admits some typical leg swelling Review of Systems Respiratory: Negative. Cardiovascular: Negative. Neurological: Negative. All other systems reviewed and are negative. Visit Vitals BP (!) 158/92 (BP Location: Right arm, Patient Position: Sitting) Pulse 66 Ht 1.905 m (6' 3 ) Wt (!) 161 kg (354 lb) SpO2 96% BMI 44.25 kg/m??? Smoking Status Former BSA 2.92 m??? Allergies Allergen Reactions Shrimp Anaphylaxis Throat swelling, itchy face Medications: Current Outpatient Medications on File Prior to Visit Medication Sig Dispense Refill amiodarone (Pacerone) 200 mg tablet Take 1 tablet (200 mg) by mouth once daily as directed. 90 tablet 1 amLODIPine (Norvasc) 5 mg tablet Take 1 tablet (5 mg) by mouth in the morning. 90 tablet 3 citalopram (CeleXA) 40 mg tablet Take 40 mg by mouth in the morning. Eliquis 5 mg tablet Take 5 mg by mouth in the morning and at bedtime. metoprolol tartrate (Lopressor) 50 mg tablet Take 50 mg by mouth with breakfast and with evening meal. omeprazole (PriLOSEC) [address] capsule Take 1 capsule (40 mg) by mouth before breakfast. Do not crush or chew. 30 capsule 0 famotidine (Pepcid) 20 mg tablet Take 1 tablet (20 mg) by mouth in the morning and at bedtime. (Patient not taking: Reported on 01/06/2024) 60 tablet 0 No current facility-administered medications on file prior to visit. Physical Exam: Constitutional: Appearance: Normal appearance. Without apparent distress, obese HENT: Head: Normocephalic and atraumatic. Nose: Nose normal. Mouth/Throat: Mouth: Mucous membranes are moist. Eyes: Extraocular Movements: Extraocular movements intact. Conjunctiva/sclera: Conjunctivae normal. Neck: Vascular: No JVD. Cardiovascular: Rate and Rhythm: Normal rate and regular rhythm. Pulses: Dorsalis pedis pulses are 3 on the right side and 3on the left side. Posterior tibial pulses are 3 on the right side and 3 on the left side. Heart sounds: Normal heart sounds, S1 normal and S2 normal. Pulmonary: Effort: Pulmonary effort is normal. Breath sounds: Normal breath sounds. Abdominal: General: Bowel sounds are normal. Palpations: Abdomen is soft. Musculoskeletal: General: Normal range of motion. Cervical back: Normal range of motion. Right lower le+ edema. Left lower le+ edema. Skin: General: Skin is warm and dry. Capillary Refill: Capillary refill takes less than 2 seconds. Neurological: General: No focal deficit present. Mental Status: he is alert and oriented to person, place, and time. Psychiatric: Mood and Affect: Mood normal. Behavior: Behavior normal. Thought Content: Thought content normal. Judgment: Judgment normal. Labs: 12/03/23 CBC normal K+ and NA normal Renal function normal Last lab values have been reviewed CV Testing: EKG today 01/06/24 Normal sinus rhythm, ST and T wave abnormality- abnormal 12/10/23 Conclusion ATRIAL FIBRILLATION ABLATION PROCEDURE NOTE DATE OF PROCEDURE: 12/10/2023 PERFORMING PHYSICIAN: Dr. Catracho Corrigan CONSENT: Patient NAME OF THE PROCEDURE: Pulmonary Vein Isolation and Comprehensive EP study. INDICATIONS FOR PROCEDURE: 1. Persistent atrial fibrillation. PROCEDURES PERFORMED: 1. Sonosite guided venous access as noted below and images stored in PACS. 2. Comprehensive EP study and catheter ablation for persistent atrial fibrillation through the pulmonary vein isolation technique. This includes right atrial recording and pacing, His bundle recording and right ventricular recording and pacing. 3. Intracardiac EP 3D mapping. 4. Intracardiac echocardiogram 5. Left atrial and coronary sinus recording and pacing to assess ablation results. 6. Left heart pressure measurements and LV pacing and recording. 7. Induction of arrhythmia and testing of ablation results using intravenous adenosine infusion. 8. Fluroscopy. LA baseline (mmHg) 1st and 2nd /15 (HR 65bpm Afib), LA 600ms pacing (mmHg) NA LA 550ms pacing (mmHg) NA AHms 114 HVms 55 VERPms 600/270, VA condunction- AV Wenkebach ms 460ms AH jump ms NA AVNERP ms 600/400 AERP ms 600/240 POST PROCEDURE DIAGNOSIS 1. Persistent atrial fibrillation s/p PVI (WACA). 2. Atrial flutter s/p CTI ablation, confirmed block. 3. EP study revealing no VA conduction. 4. No inducible arrhythmia with Adenosine. 5. Mildly elevated LA filling pressures with tachycardia. 6. Normal LA voltage. PLAN: 1. Anticoagulation after 4 hrs of sheath removal. 2. Protonix 40mg bid x 1 month 3. Groin precautions. Catracho Corrigan MD Cardiac Electrophysiology (more content not included)... [facility] 12-10-2023 Note ATRIAL FIBRILLATION ABLATION PROCEDURE NOTE DATE OF PROCEDURE: 12/10/2023 PERFORMING PHYSICIAN: Dr. Catracho Corrigan CONSENT: Patient NAME OF THE PROCEDURE: Pulmonary Vein Isolation and Comprehensive EP study. INDICATIONS FOR PROCEDURE: 1. Persistent atrial fibrillation. FLUROSCOPY: 2.1minutes/52mGy. EBL: 15cc SPECIMEN REMOVED: None PROCEDURES PERFORMED: 1. Sonosite guided venous access as noted below and images stored in PACS. 2. Comprehensive EP study and catheter ablation for persistent atrial fibrillation through the pulmonary vein isolation technique. This includes right atrial recording and pacing, His bundle recording and right ventricular recording and pacing. 3. Intracardiac EP 3D mapping. 4. Intracardiac echocardiogram 5. Left atrial and coronary sinus recording and pacing to assess ablation results. 6. Left heart pressure measurements and LV pacing and recording. 7. Induction of arrhythmia and testing of ablation results using intravenous adenosine infusion. 8. Fluroscopy. INDICATION: 53year old with past medical history of A-fib hypertension morbid obesity diabetes mellitus type 2 history of atrial septal defect repair was recently seen by Logan Ventura after he was referred for atrial fibrillation by Dr. Ng. Patient was diagnosed with atrial fibrillation in December 2022 and had been placed on Eliquis and metoprolol. He had a stress test which was negative for ischemia and had an echocardiogram in February 2023. Previously had not been tested for sleep apnea and recently underwent cardioversion on 09/30/2023 when he converted to sinus rhythm. Subsequently he was noted to be in atrial fibrillation and later EKG shows that he is in A-fib with rapid ventricular rate. He was placed on Amio and underwent DCCV to Sr with recurrence. He has now come for Afib ablation. PROCEDURE NOTE: On the day of presentation, he was noted to be in Afib following which the RAFAL was done to rule out RICKY thrombus. Risks, benefits and alternatives of the procedure were discussed with the patient and family who agreed to proceed. Please refer to my consult note for details of the discussion and of indications. The patient was prepped and draped following which four venous access was procured on right side as noted below. Ultrasound was used to determine the course and patency of the femoral veins on both sides and they were noted to be patent and the image stored in PACS. After infiltration with 1% lidocaine, 4 venous sheaths were placed in the right as noted below and a radial arterial line was placed by Anesthesia team. RFV: 8Fx3, [employer] ThermoCool SF Bi-Directional over SL1/ Vizigo, SL1: Octoray,, CS Catheter (EZ Steer). 9F: ICE catheter, Following venous access, heparin bolus was given followed by continuous intravenous drip to target ACT around 350. An intracardiac ultrasound catheter was inserted into the right atrium to examine the right atrial anatomy, atrial septum, pulmonary vein anatomy and to monitor for pericardial effusion and guide transseptal access. The LA and RA was only moderately dilated. At baseline, there was no pericardial effusion and no RICKY clot but noted a very prominent Coumadin ridge. Esophagus was mapped using the CART[employer] 3D mapping software and noted to be towards the middle to LSPV. Transeptal access was procured with ICE guidance using a SL-1 sheath and Caitlyn needle. Following this, Octoray,catheter was advanced and the multipolar mapping performed of the LA creating a geometry as well as bipolar voltage assessment was made. After FAM geometry was performed, a 2nd transseptal was performed with an SL1 sheath using a Caitlyn needle. Following transseptal, the SL1 sheath was removed and Vizigo sheath was advanced over which the ablation catheter ST-SF thermocol ablation catheter was advanced. Ablation was then performed. A temperature probe was advanced to the middle of the LA to monitor the temperature. Ablation was performed using 40 thomson for 10-12s in the anterior LA and 5-8seconds in the posterior wall and roof area. After completion of the left sided WACA, no signals were noted in the LSPV or LIPV and entrance was noted. After this, I proceeded to perform ablation of the right-sided vein. Following right WACA, the veins were isolated. I ensured that on the anterior aspect of right WACA and in terrence area, phrenic capture was ruled out before any ablation was performed. A temperature elevation was noted from a baseline of 36.8 to 38C. DCCV was done to convert to sinus. After this, perivenous pacing was performed around each individual vein, ensuring there was isolation. Adenosine was given a 12 mg dose and AV block and hypotension was noted. No reconnection was seen. LV pacing was performed and no VA conduction was seen. Mapping was done in sinus and LA was noted to be healthy. I proceeded to perform CTI ablation. Using ICE, the His and IVC junc (more content not included)... [facility] 12-10-2023 Note Patient: Ha Calvillo do Procedure Summary Date: 12/10/23 Room / Location: [facility] PHYS THER 1 EP / [facility] (Cath) Anesthesia Start: 821 Anesthesia Stop: 1202 Procedure: Ablation a-fib paroxysmal Diagnosis: Paroxysmal atrial fibrillation (CMS/HCC) (Paroxysmal atrial fibrillation (CMS/HCC) [I48.0]) Providers: Catracho Corrigan MD Responsible Provider: Pascual Canela MD Anesthesia Type: general ASA Status: 3 Anesthesia Type: general Vitals Value Taken Time BP 157/86 12/10/23 1200 Temp 36 ???C (96.8 ???F) 12/10/23 1200 Pulse 75 12/10/23 1202 Resp 23 12/10/23 1202 SpO2 96 % 12/10/23 1202 Vitals shown include unvalidated device data. Anesthesia Post Evaluation Patient location during evaluation: PACU Patient participation: complete - patient participated Level of consciousness: awake and alert Pain score: 2 Pain management: adequate Multimodal analgesia pain management approach Airway patency: patent Two or more strategies used to mitigate risk of obstructive sleep apnea Cardiovascular status: hemodynamically stable Respiratory status: face mask and nonlabored ventilation Hydration status: euvolemic Patient is hemodynamically stable and is able to be discharged from PACU per anesthesia protocol. There were no known notable events for this encounter. [facility] 12-10-2023 Note Airway Date/Time: 12/10/2023 8:34 AM Urgency: elective Airway not difficult General Information and Staff Patient location during procedure: OR Anesthesiologist: Pascual Canela MD Resident/REPAIRER/CAA: Myesha Lynn MD Performed: resident/REPAIRER/CAA Indications and Patient Condition Indications for airway management: anesthesia Spontaneous Ventilation: absent Sedation level: deep Preoxygenated: yes Patient position: sniffing Mask difficulty assessment: 3 - difficult mask (inadequate, unstable or two providers) +/- NMBA Planned trial extubation Final Airway Details Final airway type: endotracheal airway Successful airway: ETT Cuffed: yes Successful intubation technique: video laryngoscopy Facilitating devices/methods: intubating stylet Endotracheal tube insertion site: oral Blade: Payton Blade size: #4 ETT size (mm): 7.5 Cormack-Lehane Classification: grade I - full view of glottis Placement verified by: chest auscultation and capnometry Measured from: lips ETT to lips (cm): 23 Number of attempts at approach: 1 Number of other approaches attempted: 0 [facility] 12-10-2023 Note Arterial Line: Date/Time: 12/10/2023 9:00 AM An arterial line was placed Procedure performed using surface landmarks.in the pre-op for the following indication(s): continuous blood pressure monitoring and blood sampling needed. A 20 G (size), 1 and 3/4 inch (length), Angiocath (type) catheter was placed, into the Left radial artery, secured by Tegaderm, suture, Biodisc/Biopatch and tape. Events: patient tolerated procedure well with no complications. Medications Administered lidocaine (XYLOCAINE) 1 % SubQ - infiltration 3 mL - 12/10/2023 9:00:00 AM Staffing Performed: resident/REPAIRER/CAA Anesthesiologist: Pascaul Canela MD Resident/REPAIRER: Isauro Benson MD Performed by: Isauro Benson MD Authorized by: Pascual Canela MD [facility] 12-10-2023 Note This report has been cancelled. 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 (+) Atrial fibrillation (CMS/HCC) (+) Primary hypertension Endo (+) Diabetes mellitus, type 2 (CMS/HCC) GI (within normal limits) /Renal (within normal limits) Neuro/Psych (within normal limits) Pulmonary Former smoker- quit 15 years ago, no inhaler use Encounter Date: 09/30/23 ECG 12 lead Result Value Ventricular Rate 83 QRS DURATION 92 QT Interval 394 QTC CALCULATION(BAZETT) 462 R-Gowrie 53 T Wave Gowrie [address] & T wave abnormality, consider anterolateral ischemia Prolonged QT Abnormal ECG When compared with ECG of 09-AUG-1986 14:36, Atrial fibrillation has replaced Sinus rhythm Criteria for Inferior-posterior infarct are no longer Present ST depression has replaced ST elevation in Anterior leads T wave inversion more evident in Anterolateral leads Confirmed by Pavan PERSAUD, TERESA Sosa ([id number]) on 09/30/2023 1:46:26 PM Transesophageal Echo (RAFAL) w/ Possible Cardioversion Result Date: 09/30/2023 1 [facility] [address] [place] [id number] [phone] (fax) Transesophageal Echocardiogram-[facility] Name: HA TINOCO Study Date: 09/30/2023 10:24 AM B/P: 124 mmHg/85 mmHg HR: 80 bpm Date of : 1970 Location: [facility] Height: 75 in. Age: 53 year(s) Patient Room: Weight: 353 lb. Gender: Male Patient Status: OutPt BSA: 2.79 m2 Indication: Atrial Fibrillation, Pre-cardioversion, Known bicuspid aortic valve Examination: RAFAL (Transesophageal Echo / CFI), Agitated Saline, 3D images Image Quality: Excellent Patient Consent: Procedure explained to patient Conclusions Left Ventricle: The left ventricle appears normal in size. Global left ventricular systolic function is at lower limits of normal. The EF is 55 % visually. EF range is estimated at 50 % -55 %. No regional wall motion abnormality. Right Ventricle: Right ventricularsystolic function appears abnormal. Left Atrium: The left atrium appears enlarged. Left Atrium Appendage: Normal left atrial appendage, no thrombus seen. IAS: No intracardiac shunt by agitated saline injections. Aortic Valve: Bicuspid aortic valve opens well. Terell type 1, R/L raphe. Trivial aortic valve regurgitation. Tricuspid Valve: Mild tricuspid regurgitation. Pulmonic Valve: Mild pulmonary regurgitation. Overall Conclusions: Biphasic cardioversion was performed at 360 J, the patient was converted to sinus rhythm Medications Date Time Name Route Form Dose Units Ordered By Given By Comment 09/30/2023 11:40 AM Midazolam HCL (Versed) 8 milligrams 6 mg RAFAL 2 mg CV 09/30/2023 11:40 AM Fentanyl (Opiates) 100 micrograms 75 mcg RAFAL 25 mcg CV Measurements Left Ventricle Label Value Normal Value LVEF visual 55 % Valvular Assessment LVOT 0.7 - 1.1 m/sec Aortic Valve 1.0 - 1.7 m/sec Mitral Valve 0.6 - 1.3 m/sec Tricuspid Valve 0.3 - 0.7 m/sec Pulmonic Valve 0.6 - 0.9 m/sec Regurgitation Trivial Trivial Mild Mild Findings Left Ventricle: The left ventricle appears normal in size. Global left ventricular systolic function is at lower limits of normal. The EF is 55 % visually. EF range is estimated at 50 % -55 %. No regional wall motion abnormality. Right Ventricle: Right ventricular systolic function appears abnormal. Left Atrium: The left atrium appears enlarged. Left Atrium Appendage: Normal left atrial appendage, no thrombus seen. IAS: No intracardiac shunt by agitated saline injections. Right Atrium: The right atrium is severely enlarged. Mitral Valve: The mitral valve is normal in mobility and thickness. Trivial mitral regurgitation. Aortic Valve: Bicuspid aortic valve opens well. Terell type 1, R/L raphe. Trivial aortic valve regurgitation. Tricuspid Valve: Normal tricuspid valve. Mild tricuspid regurgitation. Pulmonic Valve: Normal pulmonary valve. Mild pulmonary regurgitation. Aorta: Minimal atherosclerotic plaque is seen in the aorta. Pericardium: No pericardial effusion. Procedure Staff Reading Group: [place] [facility] Referring Physician: YAQUELIN NG Grade Tamper: Julia Hernandez RDCS, RVT, RN, BSN Ordering Physician: LOGAN VENTURA Clinical information reviewed: Tobacco Allergies Meds Problems Med Hx Surg Hx Fam Hx Physical Exam Airway Mallampati: III TM distance: >3 FB Neck ROM: full Cardiovascular Rhythm: irregular Rate: normal Dental - normal exam Pulmonary - normal exam Abdominal (+) obese Other (more content not included)... [facility] 11-17-2023 Note [place] Electrophysiology Consult Note [place] [facility] Reason for visit: Afib HPI: Ha Tinoco is a 53 y.o. year old with past medical history of A-fib hypertension morbid obesity diabetes mellitus type 2 history of atrial septal defect repair was recently seen by Logan Ventura after he was referred for atrial fibrillation by Dr. Ng. Patient was diagnosed with atrial fibrillation in December 2022 and had been placed on Eliquis and metoprolol. He had a stress test which was negative for ischemia and had an echocardiogram in February 2023. Previously had not been tested for sleep apnea and recently underwent cardioversion on 10/15/2023 when he converted to sinus rhythm. Subsequently he was noted to be in atrial fibrillation and today's EKG shows that he is in A-fib with rapid ventricular rate. He has not been trialed on any antiarrhythmic drugs. Palpitations are much less frequent. SOB is improving. Denies chest pain and bleeding on Eliquis. Feels a lot better now but says his BP has been elevated. EKG 11/17/23 Afib PMH: Past Medical History: Diagnosis Date Abnormal ECG Arrhythmia Atrial fibrillation (CMS/HCC) PSH: Past Surgical History: Procedure Laterality Date ASD REPAIR CARPAL TUNNEL RELEASE SH: Social Determinants of Health Tobacco Use: High Risk (09/04/2023) Patient History Smoking Tobacco Use: Former Smokeless Tobacco Use: Current Passive Exposure: Not on file Alcohol Use: Not on file Financial Resource Strain: Not on file Food Insecurity: Not on file Transportation Needs: Not on file Physical Activity: Not on file Stress: Not on file Social Connections: Not on file Intimate Partner Violence: Unknown (08/27/2023) [place] Safety & Environment Fear of Current or Ex-Partner: Not on file Emotionally Abused: Not on file Physically Abused: Not on file Sexually Abused: Not on file Physically or Sexually Abused: Not on file Depression: Not on file Housing Stability: Not on file Utilities: Not on file Allergies: Allergies Allergen Reactions Shrimp Anaphylaxis Throat swelling, itchy face Weight: 162kg Visit Vitals BP (!) 178/102 (BP Location: Left arm, Patient Position: Sitting) Pulse 98 Ht 1.905 m (6' 3 ) Wt (!) 162 kg (358 lb) SpO2 96% BMI 44.75 kg/m??? Smoking Status Former BSA 2.93 m??? Meds: Current Outpatient Medications on File Prior to Visit Medication Sig Dispense Refill citalopram (CeleXA) 40 mg tablet Take 40 mg by mouth in the morning. Eliquis 5 mg tablet Take 5 mg by mouth in the morning and at bedtime. metoprolol tartrate (Lopressor) 50 mg tablet Take 50 mg by mouth with breakfast and with evening meal. No current facility-administered medications on file prior to visit. ROS: Review of Systems Cardiovascular: Positive for dyspnea on exertion (improving) and palpitations (much less frequent). Respiratory: Positive for wheezing. Musculoskeletal: Positive for back pain and myalgias. Neurological: Positive for headaches. All other systems reviewed and are negative. Physical Exam: Constitutional General Appearance: well-nourished, well-developed, appears stated age Level of Distress: comfortable Psychiatric Mental Status: alert, normal affect Orientation: oriented to time, place, and person Insight: good judgement Eyes Lids and Conjunctivae: non-injected, no xanthelasma ENMT Ears: no lesions on external ear Nose: no lesions on external nose Oropharynx: no cyanosis, no pallor Neck Neck: supple, trachea midline Carotid Arteries: bilateral normal upstroke, no bruits Jugular Veins: normal jugular venous pressure Thyroid: not enlarged Lungs Respiratory Effort: unlabored Chest Exam: normal curvature, no thoracic deformity Auscultation: clear, no wheezing, no rales, no rhonchi Cardiovascular Rate And Rhythm: regular Heart Sounds: normal S1, normal s2, no gallop Systolic Murmur: not heard Diastolic Murmur: not heard Extremities: no cyanosis, no edema, no peripheral signs of emboli Peripheral Pulses Radial Pulse: normal Abdomen Inspection and Palpation: soft, non distended, no bruit, non tender Musculoskeletal Inspection: no joint swelling Neurologic Gait: normal gait Skin Inspection and Palpation: warm and dry Nails: no clubbing Labs: @LABRESULTS@ No results found for: CHOLESTEROL TOTAL , HDL , LDL CALC , LDL DIRECT , TRIGLYCERIDES , TSH , T3 TOTAL , T4 TOTAL , THYROID PEROXIDASE AB , BNP EKG: Encounter Date: 09/30/23 ECG 12 lead Result Value Ventricular Rate 83 QRS DURATION 92 QT Interval 394 QTC CALCULATION(BAZETT) 462 R-Gowrie 53 T Wave Gowrie [address] & T wave abnormality, consider anterolateral ischemia Prolonged QT Abnormal ECG When compared with ECG of 09-AUG-1986 14:36, Atrial fibrillation has replaced Sinus rhythm Criteria for Inferior-posterior infarct are no longer (more content not included)... [facility] 09-07-2023 Note Noted bicuspid AO va lve on TTE will send pt to [facility] for RAFAL to better assess AO valve and ascending aorta. [facility] 09-07-2023 Note Hypertension is elev ated in office Pt states his b/p is never as high as it is in office today He will monitor his b/p daily at home and staff to call in about 1-2 weeks to check his b/p log. D/W pt that goal b/p is < 130/80 and to call office if b/p is above that goal. [facility] 09-07-2023 Note recommended weight loss [facility] 09-07-2023 Note Most likely pt has O SA and will need Cpap [facility] 09-04-2023 Note Reports that he has difficulty going to sleep at night, admits that he snores at night and has been told he stops breathing, daytime drowsiness, morbid obesity. [facility] 09-04-2023 Note [id number]= 2 HTN, DM 2 points Stroke risk was 2.2% per year in >90,000 patients (the [place] Atrial Fibrillation Cohort Study) and 0.9% risk of stroke/TIA/systemic embolism. Will send pt for cardioversion and will need to f/U with Dr Corrigan for EP and management of a fib. Heart rate is controlled with metoprolol 50 mg bid, Continue eliquis. [facility] 09-04-2023 Note [facility] CARDIOLOGY PROGR ESS NOTE HPI: Ha Tinoco is a 53 y.o. male here to establish with cardiology HPI New pt to cardiology with know PMH: A fib, HTN, Morbid obesity, DM type 2, H/O Atrial septal defent repair, Eczema New patient here to establish care. Ref from Dr. Ng for afib and hx of ASD repair. States he was diagnosed with A fib last December, and has been taking eliquis and metoprolol per PCP since then. Just had stress test 2 weeks ago, and echo in Feb 2023. Dr. Ng ordered another echo and he's waiting to schedule it. Denies chest pain, lightheadedness/syncope, and bleeding on Eliquis. Has never been tested for JACQUELIN. C/o fatigue and daytime sleepiness. Feels palpitations at night when lying down. Never worn an event monitor/Holter. Review of Systems Cardiovascular: Positive for dyspnea on exertion and palpitations. Respiratory: Positive for wheezing. Musculoskeletal: Positive for back pain and myalgias. Neurological: Positive for excessive daytime sleepiness and headaches. All other systems reviewed and are negative. PMH: as above, PSH: ASD repair 09/03/1989 FMH: Mother DM, Heart Social Pt is a former smoker > 10 years ago Allergies Shrimp Visit Vitals BP (!) 172/104 (BP Location: Left arm, Patient Position: Sitting) Pulse 99 Ht 1.905 m (6' 3 ) Wt (!) 160 kg (353 lb) SpO2 95% BMI 44.12 kg/m??? Smoking Status Former BSA 2.91 m??? No Known Allergies Medications: Current Outpatient Medications on File Prior to Visit Medication Sig Dispense Refill citalopram (CeleXA) 40 mg tablet Take 40 mg by mouth in the morning. Eliquis 5 mg tablet Take 5 mg by mouth in the morning and at bedtime. metoprolol tartrate (Lopressor) 50 mg tablet Take 50 mg by mouth with breakfast and with evening meal. No current facility-administered medications on file prior to visit. Physical Exam: Constitutional: Appearance: Normal appearance. Without apparent distress, obese HENT: Head: Normocephalic and atraumatic. Nose: Nose normal. Mouth/Throat: Mouth: Mucous membranes are moist. Eyes: Extraocular Movements: Extraocular movements intact. Conjunctiva/sclera: Conjunctivae normal. Neck: Vascular: No JVD. Cardiovascular: Rate and Rhythm: Normal rate and Irregular rhythm. Pulses: Dorsalis pedis pulses are 3 on the right side and 3on the left side. Posterior tibial pulses are 3 on the right side and 3 on the left side. Heart sounds: Normal heart sounds, S1 normal and S2 normal. Pulmonary: Effort: Pulmonary effort is normal. Breath sounds: Normal breath sounds. Abdominal: General: Bowel sounds are normal. Palpations: Abdomen is soft. Musculoskeletal: General: Normal range of motion. Cervical back: Normal range of motion. Right lower leg: No edema. Left lower leg: No edema. Skin: General: Skin is warm and dry. Capillary Refill: Capillary refill takes less than 2 seconds. Neurological: General: No focal deficit present. Mental Status: he is alert and oriented to person, place, and time. Psychiatric: Mood and Affect: Mood normal. Behavior: Behavior normal. Thought Content: Thought content normal. Judgment: Judgment normal. Labs: None available today- staff to ask PCP for recent labs Last lab values have been reviewed CV Testing: Stress test 08/18/23 02/19/23 TTE 01/30/2012 TT Assessment/Plan: Atrial fibrillation ([facility]) [id number]= 2 HTN, DM 2 points Stroke risk was 2.2% per year in >90,000 patients (the Vincent[place] Atrial Fibrillation Cohort Study) and 0.9% risk of stroke/TIA/systemic embolism. Will send pt for cardioversion and will need to f/U with Dr Corrigan for EP and management of a fib. Heart rate is controlled with metoprolol 50 mg bid, Continue eliquis. Disturbance of sleep Reports that he has difficulty going to sleep at night, admits that he snores at night and has been told he stops breathing, daytime drowsiness, morbid obesity. JACQUELIN (obstructive sleep apnea) Most likely pt has JACQUELIN and will need Cpap Class 3 severe obesity due to excess calories without serious comorbidity with body mass index (BMI) of 40.0 to 44.9 in adult ([facility]) recommended weight loss Primary hypertension Hypertension is elevated in office Pt states his b/p is never as high as it is in office today He will monitor his b/p daily at home and staff to call in about 1-2 weeks to check his b/p log. D/W pt that goal b/p is < 130/80 and to call office if b/p is above that goal. Bicuspid aortic valve Noted bicuspid AO valve on TTE will send pt to [facility] for RAFAL to better assess AO valve and ascending aorta. Orders for RAFAL, CV, and sleep study RTC after procedure and will need f/U with EP- Dr Corrigan [facility] 09-04-2023 Note [facility] CARDIOLOGY PROGR ESS NOTE HPI: Ha Tinoco is a 53 y.o. male here to establish with cardiology HPI New pt to cardiology with know PMH: A fib, HTN, Morbid obesity, DM type 2, H/O Atrial septal defent repair, Eczema New patient here to establish care. Ref from Dr. Ng for afib and hx of ASD repair. States he was diagnosed with A fib last December, and has been taking eliquis and metoprolol per PCP since then. Just had stress test 2 weeks ago, and echo in Feb [address]23. Dr. Ng ordered another echo and he's waiting to schedule it. Denies chest pain, lightheadedness/syncope, and bleeding on Eliquis. Has never been tested for JACQUELIN. C/o fatigue and daytime sleepiness. Feels palpitations at night when lying down. Never worn an event monitor/Holter. Review of Systems Cardiovascular: Positive for dyspnea on exertion and palpitations. Respiratory: Positive for wheezing. Musculoskeletal: Positive for back pain and myalgias. Neurological: Positive for excessive daytime sleepiness and headaches. All other systems reviewed and are negative. PMH: as above, PSH: ASD repair 09/03/1989 FMH: Mother DM, Heart Social Pt is a former smoker > 10 years ago Allergies Shrimp Visit Vitals BP (!) 172/104 (BP Location: Left arm, Patient Position: Sitting) Pulse 99 Ht 1.905 m (6' 3 ) Wt (!) 160 kg (353 lb) SpO2 95% BMI 44.12 kg/m??? Smoking Status Former BSA 2.91 m??? No Known Allergies Medications: Current Outpatient Medications on File Prior to Visit Medication Sig Dispense Refill citalopram (CeleXA) 40 mg tablet Take 40 mg by mouth in the morning. Eliquis 5 mg tablet Take 5 mg by mouth in the morning and at bedtime. metoprolol tartrate (Lopressor) 50 mg tablet Take 50 mg by mouth with breakfast and with evening meal. No current facility-administered medications on file prior to visit. Physical Exam: Constitutional: Appearance: Normal appearance. Without apparent distress, obese HENT: Head: Normocephalic and atraumatic. Nose: Nose normal. Mouth/Throat: Mouth: Mucous membranes are moist. Eyes: Extraocular Movements: Extraocular movements intact. Conjunctiva/sclera: Conjunctivae normal. Neck: Vascular: No JVD. Cardiovascular: Rate and Rhythm: Normal rate and Irregular rhythm. Pulses: Dorsalis pedis pulses are 3 on the right side and 3on the left side. Posterior tibial pulses are 3 on the right side and 3 on the left side. Heart sounds: Normal heart sounds, S1 normal and S2 normal. Pulmonary: Effort: Pulmonary effort is normal. Breath sounds: Normal breath sounds. Abdominal: General: Bowel sounds are normal. Palpations: Abdomen is soft. Musculoskeletal: General: Normal range of motion. Cervical back: Normal range of motion. Right lower leg: No edema. Left lower leg: No edema. Skin: General: Skin is warm and dry. Capillary Refill: Capillary refill takes less than 2 seconds. Neurological: General: No focal deficit present. Mental Status: he is alert and oriented to person, place, and time. Psychiatric: Mood and Affect: Mood normal. Behavior: Behavior normal. Thought Content: Thought content normal. Judgment: Judgment normal. Labs: None available today- staff to ask PCP for recent labs Last lab values have been reviewed CV Testing: Stress test 08/18/23 02/19/23 TTE 01/30/2012 TT Assessment/Plan: Atrial fibrillation (CMS/[facility]) [id number]= 2 HTN, DM 2 points Stroke risk was 2.2% per year in >90,000 patients (the [place] Atrial Fibrillation Cohort Study) and 0.9% risk of stroke/TIA/systemic embolism. Will send pt for cardioversion and will need to f/U with Dr Corrigan for EP and management of a fib. Heart rate is controlled with metoprolol 50 mg bid, Continue eliquis. Disturbance of sleep Reports that he has difficulty going to sleep at night, admits that he snores at night and has been told he stops breathing, daytime drowsiness, morbid obesity. JACQUELIN (obstructive sleep apnea) Most likely pt has JACQUELIN and will need Cpap Class 3 severe obesity due to excess calories without serious comorbidity with body mass index (BMI) of 40.0 to 44.9 in adult (CMS/HCC) recommended weight loss Primary hypertension Hypertension is elevated in office Pt states his b/p is never as high as it is in office today He will monitor his b/p daily at home and staff to call in about 1-2 weeks to check his b/p log. D/W pt that goal b/p is < 130/80 and to call office if b/p is above that goal. Bicuspid aortic valve Noted bicuspid AO valve on TTE will send pt to [facility] for RAFAL to better assess AO valve and ascending aorta. Orders for RAFAL, CV, and sleep study RTC after procedure and will need f/U with EP- Dr Corrigan [facility] 09-04-2023 Note [facility] CARDIOLOGY PROGR ESS NOTE HPI: Ha Tinoco is a 53 y.o. male here to establish with cardiology HPI New pt to cardiology with know PMH: A fib, HTN, Morbid obesity, DM type 2, H/O Atrial septal defent repair, Eczema New patient here to establish care. Ref from Dr. Ng for afib and hx of ASD repair. States he was diagnosed with A fib last December, and has been taking eliquis and metoprolol per PCP since then. Just had stress test 2 weeks ago, and echo in Feb [address]23. Dr. Ng ordered another echo and he's waiting to schedule it. Denies chest pain, lightheadedness/syncope, and bleeding on Eliquis. Has never been tested for JACQUELIN. C/o fatigue and daytime sleepiness. Feels palpitations at night when lying down. Never worn an event monitor/Holter. Review of Systems Cardiovascular: Positive for dyspnea on exertion and palpitations. Respiratory: Positive for wheezing. Musculoskeletal: Positive for back pain and myalgias. Neurological: Positive for excessive daytime sleepiness and headaches. All other systems reviewed and are negative. PMH: as above, PSH: ASD repair 09/03/1989 FMH: Mother DM, Heart Social Pt is a former smoker > 10 years ago Allergies Shrimp Visit Vitals BP (!) 172/104 (BP Location: Left arm, Patient Position: Sitting) Pulse 99 Ht 1.905 m (6' 3 ) Wt (!) 160 kg (353 lb) SpO2 95% BMI 44.12 kg/m??? Smoking Status Former BSA 2.91 m??? No Known Allergies Medications: Current Outpatient Medications on File Prior to Visit Medication Sig Dispense Refill citalopram (CeleXA) 40 mg tablet Take 40 mg by mouth in the morning. Eliquis 5 mg tablet Take 5 mg by mouth in the morning and at bedtime. metoprolol tartrate (Lopressor) 50 mg tablet Take 50 mg by mouth with breakfast and with evening meal. No current facility-administered medications on file prior to visit. Physical Exam: Constitutional: Appearance: Normal appearance. Without apparent distress, obese HENT: Head: Normocephalic and atraumatic. Nose: Nose normal. Mouth/Throat: Mouth: Mucous membranes are moist. Eyes: Extraocular Movements: Extraocular movements intact. Conjunctiva/sclera: Conjunctivae normal. Neck: Vascular: No JVD. Cardiovascular: Rate and Rhythm: Normal rate and Irregular rhythm. Pulses: Dorsalis pedis pulses are 3 on the right side and 3on the left side. Posterior tibial pulses are 3 on the right side and 3 on the left side. Heart sounds: Normal heart sounds, S1 normal and S2 normal. Pulmonary: Effort: Pulmonary effort is normal. Breath sounds: Normal breath sounds. Abdominal: General: Bowel sounds are normal. Palpations: Abdomen is soft. Musculoskeletal: General: Normal range of motion. Cervical back: Normal range of motion. Right lower leg: No edema. Left lower leg: No edema. Skin: General: Skin is warm and dry. Capillary Refill: Capillary refill takes less than 2 seconds. Neurological: General: No focal deficit present. Mental Status: he is alert and oriented to person, place, and time. Psychiatric: Mood and Affect: Mood normal. Behavior: Behavior normal. Thought Content: Thought content normal. Judgment: Judgment normal. Labs: None available today- staff to ask PCP for recent labs Last lab values have been reviewed CV Testing: Stress test 08/18/23 02/19/23 TTE 01/30/2012 TT Assessment/Plan: Atrial fibrillation (CMS/HCC) [id number]= 2 HTN, DM 2 points Stroke risk was 2.2% per year in >90,000 patients (the [place] Atrial Fibrillation Cohort Study) and 0.9% risk of stroke/TIA/systemic embolism. Will send pt for cardioversion and will need to f/U with Dr Corrigan for EP and management of a fib. Heart rate is controlled with metoprolol 50 mg bid, Continue eliquis. Disturbance of sleep Reports that he has difficulty going to sleep at night, admits that he snores at night and has been told he stops breathing, daytime drowsiness, morbid obesity. JACQUELIN (obstructive sleep apnea) Most likely pt has JACQUELIN and will need Cpap Class 3 severe obesity due to excess calories without serious comorbidity with body mass index (BMI) of 40.0 to 44.9 in adult (CMS/[facility]) recommended weight loss Primary hypertension Hypertension is elevated in office Pt states his b/p is never as high as it is in office today He will monitor his b/p daily at home and staff to call in about 1-2 weeks to check his b/p log. D/W pt that goal b/p is < 130/80 and to call office if b/p is above that goal. Bicuspid aortic valve Noted bicuspid AO valve on TTE will send pt to [facility] for RAFAL to better assess AO valve and ascending aorta. Orders for RAFAL, CV, and sleep study RTC after procedure and will need f/U with EP- Dr Corrigan [facility] 09-04-2023 Note New patient here to establish care. Ref from Dr. Ng for afib and hx of ASD repair. Just had stress test 2 weeks ago, and echo in Feb 2023. Dr[address] Ng ordered another echo and he's waiting to schedule it. Denies chest pain, lightheadedness/syncope, and bleeding on Eliquis. Has never been tested for JACQUELIN. C/o fatigue and daytime sleepiness. Feels palpitations at night when lying down. Never worn an event monitor/Holter. Review of Systems Cardiovascular: Positive for dyspnea on exertion and palpitations. Respiratory: Positive for wheezing. Musculoskeletal: Positive for back pain and myalgias. Neurological: Positive for excessive daytime sleepiness and headaches. All other systems reviewed and are negative. [facility] 12-03-2021 Evaluation note Encounter Date Diagnosis Assessment Notes November, High risk heterosexual behavior (ICD-10 - Z72.51) Take the Flagyl pills all at once with food. No intercourse for 2 weeks. No alcohol for 1 week. Follow-up with your family physician for reevaluation of your elevated blood pressure. November, Elevated blood pressure reading without diagnosis of hypertension (ICD-10 - R03.0) November, Other Trichomoniasis material was printed [employer] Other Evaluation noteNo InformationNort No [employer] Other History general Narrative - Reported* Type Description Date Medical History pre-diabetes [facility] Other Summary Purpose Family History No Family History Records FoundNo Family History Records FoundNo Family History Records Found Advance Directives No Advanced Directives Records FoundNo Advanced Directives Records FoundNo Advanced Directives Records Found Additional Source Comments (unrecognized sect ion and content) No Status Records FoundNo Status Records FoundNo Status Records Found INFORMATION SOURCE (unrecogn ized section and content) DATE CREATED AUTHOR 06/22/2021 [facility] DATE CREATED AUTHOR AUTHOR'S ORGANIZ ATION 12/06/2021 [facility] DATE CREATED AUTHOR AUTHOR'S ORGANIZ ATION 01/07/2024 [facility] REASON FOR VISIT (unrecogniz ed section and content) STI CHECKSTI CHECKNo Informa tion FOR RECORDS PERTAINING TO PATIENTS WHO ARE OR HAVE BEEN ENROLLED IN A CHEMICAL DEPENDENCY/SUBSTANCEABUSE PROGRAM, SOME INFORMATION MAY BE OMITTED. This clinical summary was aggregated from multiple sources. Caution should be exercised in using it in the provision of clinical care. This summary normalizes information from multiple sources, and as a consequence, information in this document may materially change the coding, format and clinical context of patient data. In addition, data may be omitted in some cases. CLINICAL DECISIONS SHOULD BE BASED ON THE PRIMARY CLINICAL RECORDS. [employer] provides no warranty or guarantee of the accuracy or completeness of information in this document.
[2024-03-30 07:43] LABS: Basophils Absolute Auto 0.1 10^3/uL (0.0-0.1); Basophils Percent Auto 0.7 % (0.2-2.0); Eosinophils Absolute Auto 0.2 10^3/uL (0.0-0.7); Hematocrit 43.4 % (42.0-54.0); Hemoglobin 15.2 g/dL (14.0-18.0); Immature Granulocytes Abs Auto 0.04 10^3/uL (0.00-0.03); Immature Granulocytes Pct Auto 0.4 % (0.0-0.5); Lymphocytes Absolute Auto 1.9 10^3/uL (1.2-3.8); Lymphocytes Percent Auto 21.1 % (20.5-60.0); Mean Corpuscular Hemoglobin 30.9 pg (25.9-34.0); Mean Corpuscular Volume 88.2 fL (80.0-94.0); Mean Platelet Volume 10.6 fL (9.5-13.5); Monocytes Absolute Auto 0.9 10^3/uL (0.3-0.8); Monocytes Percent Auto 9.6 % (1.7-12.0); Neutrophils Absolute Auto 5.9 10^3/uL (1.4-6.5); Neutrophils Percent Auto 66.2 % (43.0-75.0); Platelet Count 273 10^3/uL (150-450); Red Blood Count 4.92 10^6/uL (4.70-6.10); Red Cell Distribution Width 12.2 % (11.0-15.0); White Blood Count 8.9 10^3/uL (4.0-11.0)
[2024-03-30 08:58] LABS: Alanine Aminotransferase 55 U/L (16-63); Albumin Globulin Ratio 1.3; Albumin Level 3.8 g/dL (3.4-5.0); Alkaline Phosphatase 108 U/L (46-116); Anion Gap 8.9; Aspartate Amino Transferase 25 U/L (15-37); BUN Creatinine Ratio 21.3; Bilirubin Total 0.8 mg/dL (0.2-1.0); Calcium 9.2 mg/dL (8.5-10.1); Carbon Dioxide 31.1 mmol/L (21.0-32.0); Chloride 99 mmol/L (98-107); Estimated GFR (African America >60 (>=60); Estimated GFR (Non-African Ame >60 (>=60); Globulin 2.9 g/dL; Glucose 255 mg/dL (74-106); Sodium 135 mmol/L (136-145); Total Protein 6.7 g/dL (6.4-8.2); Triglycerides 231 mg/dL (<=150); VLDL CHOLESTEROL 46.2 mg/dL
[2024-03-30 08:59] LABS: Chol HDL Ratio 6.7; Cholesterol 227 mg/dL (<=200); Free T3 2.54 pg/mL (2.18-3.98); HDL Cholesterol 34 mg/dL (40-60); Thyroid Stimulating Hormone 1.527 uIU/mL (0.358-3.740)
[2024-03-30 09:06] LABS: Estimated Average Glucose 232 mg/dL; Glycohemoglobin A1C 9.7 % (4.5-6.2)
== END 2024-03-30 06:27 | disposition home or self-care (01) ==
LOC: LAB 06:28
PROVIDERS: PCP Family Medicine; Visit Provider Family Medicine
DX: Z00.00 Encounter for general adult medical examination without abnormal findings (principal)
CPT/HCPCS: 36415; 80053; 80061; 83036; 84153; 84436; 84443; 84481; 85025; G0103

== ENCOUNTER 2025-03-13 07:30 | Outpatient (OUT) | payer OTHER, SELFPAY ==
--- OUTSIDE RECORDS SUMMARY | 2025-03-14 08:27 | XMS_ITS | CCD ---
Author Organization [facility] Care Team Providers Care Iv Technician Name Role Phone GUERRERO, DR JAMISON Admitting [...] sources) shrimp allergenic extract Drug Allergy anaphylaxis [facility] [place]ola Other (1 source) Shrimp product; Translations: [SHRIMP] Propensity to adverse reactions to drug (disorder) 4 [facility] Repository Medications Current Medications Medication Drug Class(es) [...] 09-04-2023 Chronic Other aftercare (2 sources) Other intermediate teacher (current) drug therapy; Translations: [Other usp (current) drug therapy] Onset: 01-06-2024 Episodic Other [...] exam every year with taking amiodarone. Normal [facility] Follow-Upon 01-06-2024 Follow-Up [id number] Ha Tinoco 1970 M Date Provider Department Center 01/06/2024 LOGAN TORO GINO [facility] Family History Problem Relation Age of Onset Other Mother Family Status - Relation Status Age at Mother Level of Service:75370 MA OFFICE/OUTPATIENT ESTABLISHED MOD MDM 30 MIN Normal [facility] Telephoneon 12-17-2023 Telephone [id number] Ha Tinoco 1970 M Date Provider Department Center 12/17/2023 CATRACHO MATHIAS [facility] Family History Problem Relation Age of Onset Other Mother Family Status - Relation Status Age at Mother Reason for Visit and Comments: week f/u post ablation [Other] Normal [facility] HEMOGLOBIN A1Con 12-10-2023 Glucose [Mass/Vol] 237 mg/dL Normal [facility] Comment on above: Order Comment: NO VA RIANT Performed By: #### L [id number] #### [facility] (BEAKER) [address] [place] [address] HbA1c (Bld) [Mass fraction] 9.9 % High 4.0-6.0 [facility] Comment on above: Order Comment: NO VA RIANT Performed By: #### L [id number] #### [facility] (BEAK[facility]) [address] [place] [address] HPon 12-10-2023 [facility] Electrophysiology Consult Note Reason for visit: Afib 12/10/23 Pt here for Afib ablation. Pt in Afib HPI: Ha Tinoco is a 53 y.o. year old with past medical history of A-fib hypertension morbid obesity diabetes mellitus type 2 history of atrial septal defect repair was recently seen by Logan Vnetura after he was referred for atrial fibrillation [...] Date Abnormal ECG Anxiety Arrhythmia Atrial fibrillation ([facility]) 12/2022 Depression Diabetes mellitus ([facility]) Heart valve disease bicuspid aortic valve History [...] on file Intimate Partner Violence: Unknown (08/27/2023) OR Safety & Environment Fear of Current or [...] Value Ventricular Rate 74 Atrial Rate 74 MA Interval 192 QRS DURATION 104 QT Interval 436 QTC CALCULATION(BAZETT) 483 P [place] 56 R-[place] 43 T Wave [place] 87 Impression Normal sinus rhythm (more content not included)... Normal [facility] HP This report has been cancelled. Normal [facility] POCT GLUCOSE METER UNSOLICIT ED RESULTSon 12-10-2023 Glucose [Mass/Vol] 299 mg/dL High 70-105 [facility] Comment on above: Order Comment: Waive d Testing in the ED is performed under the ED CLIA certificate #[id number]. Result Comment: [email or web address] Performed By: #### L [id number] ####[facility] (NetDragon)[address] [place] [address] Glucose [Mass/Vol] 292 mg/dL High 70-105 [facility] Comment on above: Order Comment: Waive d Testing in the ED is performed under the ED CLIA certificate #[id number]. Result Comment: [email or web address] Performed By: #### L [id number] #### [facility] ([facility]) [address] [place] [address] Glucose [Mass/Vol] 312 mg/dL High 70-105 [facility] Comment on above: Order Comment: Waive d Testing in the ED is performed under the ED CLIA certificate #[id number]. Result Comment: [email or web address] Performed By: #### L [id number] ####[facility] ([facility])[address] [place] [address] PROTIME-INRon 12-10-2023 INR IN PPP BY COAGULATION ASSAY 1.06 Normal 0.90-1.10 [facility] Comment on above: Result Comment: ACCC P [...] CHEST 1995;108:231S-246S. Performed By: #### L [id number] ####[facility] (BEAKER)[address] [place] [address] PROTHROMBIN TIME (PT) IN PPP BY COAGULATION ASSAY 13.8 Seconds Normal 12.3-14.8 [facility] Comment on above: Performed By: #### L [id number] ####[facility] (BEAKER)[address] [place] [address] Prep for Procedureon 024 Prep for Procedure [id number] Ha Tinoco 1970 M Date Provider Department Center 12/10/2023 CATRACHO MATHIAS [facility] Family History Problem Relation Age of Onset Other Mother Family Status - Relation Status Age at Mother Normal [facility] [id number] 12-02-2023 [id number] ARRIVAL TIME GIVEN 0 600 HOLD ELIQUIS 12/07 MEDICATIONS TO TAKE DAY OF SURGERY WITH SIP OF WATER AMIODARONE AMLODIPINE CELEXA METOPROLOL ORDERS FOR LABS FAXED TO [facility] PT AGREES TO HAVE LABS DRAWN ON 12/02 NSAIDs (Motrin,Aleve): 5 days prior to procedure Vitamins/Supplements: 5 days prior to procedure IF YOU ARE GOING HOME AFTER YOUR SURGERY OR PROCEDURE, FOR YOUR SAFETY, YOUR SURGERY WILL BE CANCELLED IF BOTH OF THE FOLLOWING ARE NOT AVAILABLE: An adult regional dedicated truck driver over the age of 18, that [...] lenses. Do not wear perfume, make-up, nail german, or lotions on the day of your [...] need to make any changes, please call [phone]. Notify your surgeon if you develop any illness such as a cold, cough, fever, sore throat or vomiting between now and your surgery. Thank you for entrusting us with your care. [facility] Surgical Services Team Normal [facility] Prep for Procedureon 024 Prep for Procedure [id number] SpeerHa Erich 1970 M Date Provider Department Center 11/18/2023 Missael-MARIA DEL ROSARIO KELLEY [facility] Family History Problem Relation Age of Onset Other Mother Family Status - Relation Status Age at Mother Normal [facility] Office Visiton 11-17-2023 Follow-up visit [id number] Speer,Ha Erich 1970 M Date Provider Department Center 11/17/2023 241-CATRACHO CORRIGAN GINO Gibson Family History Problem Relation Age of Onset Other Mother Family Status - Relation Status Age at Mother Level of Service:57599 MA OFFICE/OUTPATIENT NEW MODERATE MDM 45 MINUTES Normal [facility] ANEThomas 09-30-2023 ANES --- Attestation signed by [...] TRANSESOPHAGEAL ECHO (RAFAL) W/ POSSIBLE CARDIOVERSION Location: [facility] Heart and Vascular Center Vascular Lab [...] attending and fellow. Additional Equipment Requests Normal [facility] HPon 09-30-2023 --- Attestation signed by Teresa [...] discussed with the patient and he's agreeable. [facility] HP H&P reviewed. The patient was examined and there are no changes to the H&P. [facility] NURSNOTEon 09-30-2023 NURSNOTE RN educated pt on discharge instructions. RN encouraged pt to voice any questions or concerns. Pt verbalizes no questions or concerns at this time. Pt was wheeled off unit with all belongings. Pt awake alert oriented, tolerating sips of water w/o difficulty. [facility] Orders Onlyon 09-22-2023 Orders Only [id number] Ha Tinoco 1970 M Date Provider Department Center 09/22/2023 ELMIRA BOJORQUEZ [facility] Family History Problem Relation Age of Onset Other Mother Family Status - Relation Status Age at Mother [facility] Office Visiton 09-04-2023 Follow-up visit [id number] Ha Tinoco 1970 M Date Provider Department Center 09/04/2023 120-LOGAN VENTURA CARD [facility] Family History Problem Relation Age of Onset Other Mother Family Status - Relation Status Age at Mother Level of Service:68283 MA OFFICE/OUTPATIENT NEW MODERATE MDM 45 MINUTES Normal [facility] Chlamydia/GC/Trich NAAon Chlamydia Trachomotis, ERNST Negative Normal Negative [facility] Comment on above: Order Comment: Reaso n for Exam High risk heterosexual behavior SOURCE OF SPECIMEN: URINE APTIMA Performed By: #### G CCHLAMTRI #### [facility] , Neisseria Gonorrhoeae, ERNST Negative Normal Negative [facility] Comment on above: Order Comment: Reaso n for Exam High risk heterosexual behavior SOURCE OF SPECIMEN: URINE APTIMA Performed By: #### G CCHLAMTRI #### [facility] , Trichomonas ERNST Negative Normal Negative [facility] Comment on above: Order Comment: Reaso n for Exam High risk heterosexual behavior SOURCE OF SPECIMEN: URINE APTIMA Result Comment: Perf ormed at: =G - [facility] [address] [id number] Branch Account Manager: Lizzie Butterfield MD, Phone: [phone] PERFORMED BY: [facility] [address] [place] [address] PATHOLOGIST HORIZONTAL BORING MILL OPERATOR ARTIE IYER M.D. Performed By: #### G CCHLAMTRI #### [facility] , Chlamydia/GC/Trich ERNST Negative Negative [facility] Other [facility] 06-05 SARS-CoV-2 (COVID-19) RNA ERNST+probe Ql (Unsp spec) Not detected Normal NOT DETECTED [facility] Comment on above: Result Comment: This test is not yet approved or cleared by the [place] FDA. When there are no FDA-approved or cleared tests available, and other criteria are met, FDA can make tests available under an emergency access mechanism called an Emergency Use Authorization (EUA). The EUA for this test is supported by the Flag Maker of Health and Human Service's (HHS's) declaration [...] consistent with SARS-CoV-2. Performed By: #### C [facility] #### [facility] [address] [place] [address] Dr. Darci Ramirez CBC AUTO DIFFon 10-09-2020 BASO # 0.1 103/ul Normal 0.0-0.1 [facility] Comment on above: Performed By: #### C BC #### [facility] [address] [place] [address] Andrae Cady Basophils/100 WBC (Bld) 0.5 % Normal 0.2-2.0 [facility] Comment on above: Performed By: #### C BC #### [facility] [address] [place] [address] Andrae Cady EO # 0.2 103/ul Normal 0.0-0.7 [facility] Comment on above: Performed By: #### C BC #### [facility] [address] [place] [address] Andrae Cady Eosinophils/100 WBC (Bld) 2.3 % Normal 0.9-7.0 [facility] Comment on above: Performed By: #### C BC #### [facility] [address] [place] [address] Andrae Cady Erythrocyte distribution width (RBC) [Ratio] 12.3 % Normal 11.0-15.0 [facility] Comment on above: Performed By: #### C BC #### [facility] [address] [place] [address] Andrae Cady Hematocrit (Bld) [Volume fraction] 47.0 % Normal 42.0-54.0 [facility] Comment on above: Performed By: #### C BC #### [facility] [address] [place], [place] [id number] Andrae Cady Hemoglobin (Bld) [Mass/Vol] 15.9 g/dL Normal 14.0-18.0 [facility] Comment on above: Result Comment: Prev iously reported as: 15.9 On 10/09/2020 07:18 By CV2 Performed By: #### C BC #### [facility] [address] [place] [address] Andrae Cady IG # 0.03 10e3/ul Normal 0.00-0.03 [facility] Comment on above: Performed By: #### C BC #### [facility] [address] [place] [address] Andrae Cady IG % 0.3 % Normal 0.0-0.5 [facility] Comment on above: Performed By: #### C BC #### [facility] [address] [place] [address] Andrae Cady LYMPH # 2.3 103/ul Normal 1.2-3.8 [facility] Comment on above: Performed By: #### C BC #### [facility] [address] [place] [address] Andrae Cady Lymphocytes/100 WBC (Bld) 23.6 % Normal 20.5-60.0 [facility] Comment on above: Performed By: #### C BC #### [facility] [address] [place] [address] Andrae Cady MANUAL DIFF REQ NO Normal [facility] Comment on above: Performed By: #### C BC #### [facility] [address] [place] [address] Andrae Cady MCH (RBC) [Entitic mass] 29.6 pg Normal 25.9-34.0 [facility] Comment on above: Performed By: #### C BC #### [facility] [address] [place] [address] Andrae Cady MCHC (RBC) [Mass/Vol] 33.8 g/dL Normal 29.9-35.2 [facility] Comment on above: Performed By: #### C BC #### [facility] [address] [place] [address] Andrae Cady MCV (RBC) [Entitic vol] 87.5 fL Normal 80.0-94.0 [facility] Comment on above: Performed By: #### C BC #### [facility] [address] [place], [place] [id number] Andrae Lazar MONO # 0.8 103/ul Normal 0.3-0.8 [facility] Comment on above: Performed By: #### C BC #### [facility] [address] [place] [address] Andrae Lazar Monocytes/100 WBC (Bld) 8.4 % Normal 1.7-12.0 [facility] Comment on above: Performed By: #### C BC #### [facility] [address] [place] [address] Andrae Lazar NEUT # 6.4 103/ul Normal 1.4-6.5 [facility] Comment on above: Performed By: #### C BC #### [facility] [address] [place] [address] Andrae Lazar Neutrophils/100 WBC (Bld) 64.9 % Normal 43.0-75.0 [facility] Comment on above: Performed By: #### C BC #### [facility] [address] [place], [place] [id number] Andrae Lazar Platelet mean volume (Bld) [Entitic vol] 10.1 fL Normal 9.5-13.5 [facility] Comment on above: Performed By: #### C BC #### [facility] [address] [place] [address] Andraedavid Tayloren PLT 326 103/ul Normal 150-450 [facility] Comment on above: Performed By: #### C BC #### [facility] [address] [place], [place] [id number] Andrae Cady RBC 5.37 106/ul Normal 4.70-6.10 [facility] Comment on above: Performed By: #### C BC #### [facility] [address] [place], [place] [id number] Andrae Cady WBC 9.9 103/ul Normal 4.0-11.0 [facility] Comment on above: Performed By: #### C BC #### [facility] [address] [place], [place] [address] Andrae Lazar GLYCOHEMOGLOBIN A1Con 2020 ADA RECOMMENDATION ADA THERAPEUTIC TARG ET 6.0 - 7.0 ACTION SUGGESTED > 7.0 Normal [facility] Comment on above: Performed By: #### A 1C #### [facility] [address] [place] [id number] Andrae Cady Glucose [Mass/Vol] 148 mg/dL Normal [facility] Comment on above: Performed By: #### A 1C #### [facility] [address] [place] [id number] Andrae Cady HbA1c (Bld) [Mass fraction] 6.8 % Critically high <=6.0 [facility] Comment on above: Performed By: #### A 1C #### [facility] [address] [place] [address] Andrae Lazar LIPID PROFILEon 10-09-2020 CHOL-HDL RATIO NORM SEE BELOW Normal [facility] Comment on above: Result Comment: 3.3 - 4.4 LOW RISK 4.4 - 7.1 AVERAGE RISK 7.1 - 11.0 MODERATE RISK >11.0 HIGH RISK Performed By: #### L IPID, CMP, PSASC #### [facility] [address] [place] [address] Andrae Cady Cholesterol [Mass/Vol] 183 mg/dL Normal <=200 [facility] Comment on above: Performed By: #### L IPID, CMP, PSASC #### [facility] [address] [place] [address] Andrae Cady Cholesterol in HDL [Mass/Vol] 29 mg/dL Normal [facility] Comment on above: Performed By: #### L IPID, CMP, PSASC #### [facility] [address] [place] [id number] Andrae Cady Cholesterol in LDL [Mass/Vol] 125.0 mg/dL Normal [facility] Comment on above: Performed By: #### L IPID, CMP, PSASC #### [facility] [address] [place] [id number] Andrae Cady Cholesterol.total/C holesterol in HDL [Mass ratio] 6.3 {ratio} Normal [facility] Comment on above: Performed By: #### L IPID, CMP, PSASC #### [facility] [address] [place] [id number] Andrae Cady HDL NORMAL > or = 60 mg/dl - LO W CARDIOVASCULAR RISK <40 mg/dl - HIGH CARDIOVASCULAR RISK Normal [facility] Comment on above: Performed By: #### L IPID, CMP, PSASC #### [facility] [address] [place] [address] Andrae Cady LDL CALC NORMAL SEE BELOW Normal [facility] Comment on above: Result Comment: <100 mg/dl OPTIMAL 100 - 129 mg/dl NEAR OR ABOVE OPTIMAL 130 - 159 mg/dl BORDERLINE HIGH 160 - 189 mg/dl HIGH >190 mg/dl VERY HIGH Performed By: #### L IPID, CMP, PSASC #### [facility] [address] [place] [address] Andrae Cady Triglyceride [Mass/Vol] 145 mg/dL Normal <=150 [facility] Comment on above: Performed By: #### L IPID, CMP, PSASC #### [facility] [address] [place] [address] Andrae Cady VLDL CALC 29.0 mg/dL Normal [facility] Comment on above: Performed By: #### L IPID, CMP, PSASC #### [facility] [address] [place] [id number] Andraedavid Tayloren PROF 14(COMP METB)on 021 Albumin [Mass/Vol] 4.0 g/dL Normal 3.5-5.0 [facility] Comment on above: Performed By: #### L IPID, CMP, PSASC #### [facility] [address] [place] [address] Andrae Cady Albumin/Globulin [Mass ratio] 1.1 {ratio} Normal [facility] Comment on above: Performed By: #### L IPID, CMP, PSASC #### [facility] [address] [place] [id number] Andrae Cady ALP [Catalytic activity/Vol] 86 U/L Normal 38-126 [facility] Comment on above: Performed By: #### L IPID, CMP, PSASC #### [facility] [address] [place] [id number] Andrae Cady ALT [Catalytic activity/Vol] 61 U/L Normal 21-72 [facility] Comment on above: Performed By: #### L IPID, CMP, PSASC #### [facility] [address] [place] [id number] Andrae Cady Anion gap [Moles/Vol] 14.8 mmol/L Normal [facility] Comment on above: Performed By: #### L IPID, CMP, PSASC #### [facility] [address] [place] [address] Andrae Cady AST [Catalytic activity/Vol] 29 U/L Normal 17-59 [facility] Comment on above: Performed By: #### L IPID, CMP, PSASC #### [facility] [address] [place] [address] Andrae Cady Bilirubin [Mass/Vol] 0.6 mg/dL Normal 0.2-1.3 [facility] Comment on above: Performed By: #### L IPID, CMP, PSASC #### [facility] [address] [place] [id number] Andrae Cady Calcium [Mass/Vol] 9.0 mg/dL Normal 8.4-10.2 [facility] Comment on above: Performed By: #### L IPID, CMP, PSASC #### [facility] [address] [place] [id number] Andrae Cady Chloride [Moles/Vol] 101 mmol/L Normal 98-107 [facility] Comment on above: Performed By: #### L IPID, CMP, PSASC #### [facility] [address] [place] [id number] Andrae Cady CO2 [Moles/Vol] 28.2 mmol/L Normal 22.0-30.0 [facility] Comment on above: Performed By: #### L IPID, CMP, PSASC #### [facility] [address] [place], [place] [address] Andrae Cady Creatinine [Mass/Vol] 0.92 mg/dL Normal 0.66-1.25 [facility] Comment on above: Performed By: #### L IPID, CMP, PSASC #### [facility] [address] [place], [place] [address] Andrae Cady EGFR-AF MACEDONIAN >60 Normal >=60 [facility] Comment on above: Performed By: #### L IPID, CMP, PSASC #### [facility] [address] [place], [place] [address] Andrae Cady EGFR-NON AF MACEDONIAN >60 Normal >=60 [facility] Comment on above: Performed By: #### L IPID, CMP, PSASC #### [facility] [address] [place] [id number] Andrae Cady Globulin (S) [Mass/Vol] 3.6 g/dL Normal [facility] Comment on above: Performed By: #### L IPID, CMP, PSASC #### [facility] [address] [place], [place] [address] Andrae Cady Glucose [Mass/Vol] 164 mg/dL Critically high 74-106 [facility] Comment on above: Performed By: #### L IPID, CMP, PSASC #### [facility] [address] [place], [place] [address] Andrae Cady Potassium [Moles/Vol] 4.0 mmol/L Normal 3.4-5.0 [facility] Comment on above: Performed By: #### L IPID, CMP, PSASC #### [facility] [address] [place], [place] [address] Andrae Cady Protein [Mass/Vol] 7.6 g/dL Normal 6.1-8.2 [facility] Comment on above: Performed By: #### L IPID, CMP, PSASC #### [facility] [address] [place], [place] [address] Andrae Cady Sodium [Moles/Vol] 140 mmol/L Normal 137-145 [facility] Comment on above: Performed By: #### L IPID, CMP, PSASC #### [facility] [address] [place], [place] [address] Andrae Tayloren Urea nitrogen [Mass/Vol] 15.0 mg/dL Normal 9.0-20.0 [facility] Comment on above: Performed By: #### L IPID, CMP, PSASC #### [facility] [address] [place], [place] [address] Andrae Tayloren Urea nitrogen/Creatinine [Mass ratio] 16.3 mg/mg Normal [facility] Comment on above: Performed By: #### L IPID, CMP, PSASC #### [facility] [address] [place], [place] [address] Andrae Lazar Vital Signs Date Time Vital Sign Value Performing Clinician Facility 12-03-2021 15:35-0400 Body height 190.5 cm [facility] Other [facility] Other 12-03-2021 15:35-0400 Body mass index (BMI) [Ratio] 39.74 kg/m2 [facility] Other [facility] Other 12-03-2021 15:35-0400 Body temperature 98 [degF] [facility] Other [facility] Other 12-03-2021 15:35-0400 Body weight 144.24 kg [facility] Other [facility] Other 12-03-2021 15:35-0400 Diastolic blood pressure 99 mm[Hg] [facility] Other [facility] Other 12-03-2021 15:35-0400 Respiratory rate 18 /min Beba Caballero Other [facility] Other 12-03-2021 15:35-0400 SaO2% (BldA) [Mass fraction] 98 % Beba Caballero Other [facility] Other 12-03-2021 15:35-0400 Systolic blood pressure 157 mm[Hg] Beba Caballero Other [facility] Other Encounters Encounter Date Encounter Type Care Provider Facility Start: 01-06-2024 End: 01-06-2024 ambulatory [facility] Start: 12-10-2023 ambulatory [facility] Start: 12-10-2023 ambulatory [facility] Start: 12-10-2023 End: 12-10-2023 ambulatory [facility] Start: 11-17-2023 End: 11-17-2023 ambulatory [facility] Start: 09-30-2023 End: 09-30-2023 ambulatory TERESA Kruger [facility] Start: 09-04-2023 End: 09-04-2023 ambulatory [facility] Start: 12-09-2021 End: 12-09-2021 ambulatory Beba Caballero Other [facility] Other Start: 12-09-2021 Telephone encounter [facility] Start: 12-03-2021 End: 12-03-2021 ambulatory Beba Caballero Other [facility] Other Start: 12-03-2021 Office outpatient ne w 20 minutes Beba Caballero [facility] Start: 06-17-2021 End: 06-17-[address] YAQUELIN NG Facility:[facility] Start: 10-15-2020 Encounter for genera l adult medical examination without abnormal findings DR YAQUELIN NG [facility] Start: 10-09-2020 End: 10-10-[address] YAQUELIN NG Facility:[facility] Start: 10-09-2020 End: 10-10-2020 Encounter for general adult medical examination without abnormal findings DR YAQUELIN NG Facility:[facility] Procedures Date Procedure Procedure Detail Performing Clinician Start: 10-09-[address] CORNEL NG Comment on above: Performed By: #### L IPID, CMP, PSASC #### [facility] [address] [place], [place] [address] Andrae Lazar Payers Date Payer Category Payer Private Health Insurance [id number] 1970 Unknown [id number] [id number] 1970 Unknown [id number] 1957 Private Health Insurance [id number] 1957 Private Health Insurance [id number] Social History Date Type Detail Facility Sex Assigned At Valuation App Other Clinical Notes 12-03-2021 to 01-06-2024 Note Date & Type Note Facility 01-06-2024 Note A1C 9.9- f/U with PC P for tighter glycemic management and evaluation [facility] 01-06-2024 Note Overall pt is doing well post ablation, remains in SR and no acute symptoms or concerns today [facility] 01-06-2024 Note [id number]= 2- HTN and DM Continue eliquis anticoagulation- denied any bleeding tendencies, and continue metoprolol EKG today Sinus rhythm [facility] 01-06-2024 Note Hypertension is unco ntrolled . Dietary sodium restriction. Weight loss. Regular aerobic exercise. Medication changes per orders.- Add hydrochlorothiazide to regime and repeat BMP in 1-2 weeks to check renal function and electrolytes Blood pressure will be reassessed in 3 months. [facility] 01-06-2024 Note Patient here for fol low [...] All other systems reviewed and are negative. [facility] 01-06-2024 Note UTP CARDIOLOGY PROGR ESS NOTE [...] MD Cardiac Electrophysiology (more content not included)... [facility] 12-10-2023 Note ATRIAL FIBRILLATION ABLATION PROCEDURE NOTE [...] and IVC junc (more content not included)... [facility] 12-10-2023 Note Patient: Ha Calvillo do Procedure Summary Date: 12/10/23 Room / Location: [facility] ESCROW ASSISTANT 1 EP / [facility] VASCULAR LAB (Cath) Anesthesia Start: [...] no known notable events for this encounter. [facility] 12-10-2023 Note Airway Date/Time: 12/10/2023 8:34 AM Urgency: elective Airway not difficult General Information and Staff Patient location during procedure: [place] Anesthesiologist: Pascual Canela MD Resident/[employer]/CAA: Myesha Lynn MD Performed: resident/[employer]/[facility]AA Indications and Patient Condition Indications for airway [...] 1 Number of other approaches attempted: 0 [facility] 12-10-2023 Note Arterial Line: Date/Time: 12/10/2023 9:00 [...] mL - 12/10/2023 9:00:00 AM Staffing Performed: resident/[employer]/[facility]AA Anesthesiologist: Pascual Canela MD Resident/[employer]: Isauro Benson MD Performed by: Isauro Benson MD Authorized by: Pascual Canela MD [facility] 12-10-2023 Note This report has been cancelled. [facility] 12-10-2023 Note Patient: Ha Calvillo do Procedure Information Date/Time: 12/10/23 0800 Procedure: Ablation a-fib paroxysmal - BEFORE 01/03 Location: [facility] ESCROW ASSISTANT 1 EP / [facility]ASCULAR [facility] (Cath) Providers: Catracho [...] 92 QT Interval 394 QTC CALCULATION(BAZETT) 462 R-[place] 53 T Wave [place] [address] & T [...] w/ Possible Cardioversion Result Date: 09/30/2023 1 [facility] Heart Station [address] [place] [id number] [phone] (fax) Transesophageal Echocardiogram-[facility] Name: HA TINOCO Study Date: 09/30/2023 10:24 AM B/P: 124 mmHg/85 mmHg HR: 80 bpm Date of : 1970 Location: [facility] Height: 75 in. Age: 53 year(s) [...] No pericardial effusion. Procedure Staff Reading Group: [facility] Referring Physician: YAQUELIN NG Snowboard Instructor: Julia Hernandez RDCS, RVT, RN, BSN Ordering Physician: LOGAN VENTURA Clinical information reviewed: Tobacco Allergies Meds Problems Med Hx Surg Hx Fam Hx Physical Exam Airway Mallampati: III TM distance: >3 FB Neck ROM: full Cardiovascular Rhythm: irregular Rate: normal Dental - normal exam Pulmonary - normal exam Abdominal (+) obese Other (more content not included)... [facility] 11-17-2023 Note OR Electrophysiology Consult Note OR Cardiology [facility] Reason for visit: Afib HPI: Ha [...] on file Intimate Partner Violence: Unknown (08/27/2023) OR Safety & Environment Fear of Current or [...] 92 QT Interval 394 QTC CALCULATION(BAZETT) 462 R-[place] 53 T Wave [place] [address] & T wave abnormality, consider anterolateral ischemia Prolonged QT Abnormal ECG When compared with ECG of 09-AUG-1986 14:36, Atrial fibrillation has replaced Sinus rhythm Criteria for Inferior-posterior infarct are no longer (more content not included)... [facility] 09-07-2023 Note Noted bicuspid AO va lve on TTE will send pt to [facility] for RAFAL to better assess AO valve and ascending aorta. [facility] 09-07-2023 Note Hypertension is elev ated in office Pt states his b/p is never as high as it is in office today He will monitor his b/p daily at home and staff to call in about 1-2 weeks to check his b/p log. D/W pt that goal b/p is < 130/80 and to call office if b/p is above that goal. [facility] 09-07-2023 Note recommended weight loss [facility] 09-07-2023 Note Most likely pt has O SA and will need Cpap [facility] 09-04-2023 Note Reports that he has difficulty going to sleep at night, admits that he snores at night and has been told he stops breathing, daytime drowsiness, morbid obesity. [facility] 09-04-2023 Note [id number]=OQPy= 2 HTN, DM 2 points Stroke risk was 2.2% per year in >90,000 patients (the [place] Atrial Fibrillation Cohort Study) and 0.9% risk of stroke/TIA/systemic embolism. Will send pt for cardioversion and will need to f/U with Dr Corrigan for EP and management of a fib. Heart rate is controlled with metoprolol 50 mg bid, Continue eliquis. [facility] 09-04-2023 Note UTP CARDIOLOGY PROGR ESS NOTE [...] 02/19/23 TTE 01/30/2012 TT Assessment/Plan: Atrial fibrillation ([facility]) [id number]=ONNg= 2 HTN, DM 2 points Stroke risk was 2.2% per year in >90,000 patients (the [place] Atrial Fibrillation Cohort Study) and 0.9% risk [...] (BMI) of 40.0 to 44.9 in adult ([facility]) recommended weight loss Primary hypertension Hypertension is [...] valve on TTE will send pt to [facility] for RAFAL to better assess AO valve and ascending aorta. Orders for RAFAL, CV, and sleep study RTC after procedure and will need f/U with EP- Dr Corrigan [facility] 09-04-2023 Note UTP CARDIOLOGY PROGR ESS NOTE [...] 02/19/23 TTE 01/30/2012 TT Assessment/Plan: Atrial fibrillation ([facility]) [id number]=QVNe= 2 HTN, DM 2 points Stroke risk was 2.2% per year in >90,000 patients (the [place] Atrial Fibrillation Cohort Study) and 0.9% risk [...] valve on TTE will send pt to [facility] for RAFAL to better assess AO valve and ascending aorta. Orders for RAFAL, CV, and sleep study RTC after procedure and will need f/U with EP- Dr Corrigan [facility] 09-04-2023 Note UTP CARDIOLOGY PROGR ESS NOTE [...] TTE 01/30/2012 TT Assessment/Plan: Atrial fibrillation (CMS/HCC) [id number]=PDFy= 2 HTN, DM 2 points Stroke risk was 2.2% per year in >90,000 patients (the [place] Atrial Fibrillation Cohort Study) and 0.9% risk [...] (BMI) of 40.0 to 44.9 in adult ([facility]) recommended weight loss Primary hypertension Hypertension is [...] valve on TTE will send pt to [facility] for RAFAL to better assess AO valve and ascending aorta. Orders for RAFAL, CV, and sleep study RTC after procedure and will need f/U with EP- Dr Corrigan [facility] 09-04-2023 Note New patient here to establish [...] All other systems reviewed and are negative. [facility] 12-03-2021 Evaluation note Encounter Date Diagnosis Assessment [...] R03.0) November, Other Trichomoniasis material was printed Valuation App Other Evaluation noteNo InformationNort VoluBill Other History general Narrative - Reported* Type Description Date Medical History pre-diabetes Valuation App Other Summary Purpose Family History No Family History Records FoundNo Family History Records FoundNo Family History Records Found Advance Directives No Advanced Directives Records FoundNo Advanced Directives Records FoundNo Advanced Directives Records Found Additional Source Comments (unrecognized sect ion and content) No Status Records FoundNo Status Records FoundNo Status Records Found INFORMATION SOURCE (unrecogn ized section and content) DATE CREATED AUTHOR 06/22/2021 [facility] DATE CREATED AUTHOR AUTHOR'S ORGANIZ ATION 12/06/2021 [facility] DATE CREATED AUTHOR AUTHOR'S ORGANIZ ATION 01/07/2024 [facility] REASON FOR VISIT (unrecogniz ed [...] BE BASED ON THE PRIMARY CLINICAL RECORDS. [employer] provides no warranty or guarantee of the accuracy or completeness of information in this document.
== END 2025-03-13 07:31 | disposition home or self-care (01) ==
LOC: SLEEP 03-14 08:23
PROVIDERS: PCP Family Medicine; Visit Provider Family Medicine
DX: G47.33 Obstructive sleep apnea (adult) (pediatric) (principal); G47.30 Sleep apnea, unspecified
CPT/HCPCS: 95806